=== PATIENT | female | born 1970 | race Caucasian/White ===

== ENCOUNTER 2020-04-24 08:03 | Outpatient (REF) | payer BC, SELFPAY ==
[2020-04-24 08:38] LABS: MANUAL DIFF FLAG NO
[2020-04-24 08:45] LABS: Basophils Percent Auto 0.3 % (0-2); Eosinophils Absolute Auto 0.1 X10*3/uL (0.0-0.4); Eosinophils Percent Auto 1.7 % (0-4); Hematocrit 41.4 % (37-47); Hemoglobin 13.1 g/dl (12.0-16.0); Imm Gran Abs Auto 0.02 X10*3/uL (0.00-0.03); Imm Gran Pct Auto 0.3 % (0.0-0.4); Lymphocytes Absolute Auto 2.9 X10*3/uL (1.2-4.9); Lymphocytes Percent Auto 41.2 % (20-40); Mean Corpuscular HGB Conc 31.6 g/dl (31.0-35.0); Mean Corpuscular Hemoglobin 25.7 pg (27.0-33.0); Mean Corpuscular Volume 81.3 fL (80-98); Mean Platelet Volume 11.1 fL (9.4-12.3); Monocytes Absolute Auto 0.4 X10*3/uL (0.1-1.2); Monocytes Percent Auto 6.2 % (2-11); Neutrophils Absolute Auto 3.6 X10*3/uL (2.0-8.3); Neutrophils Percent Auto 50.3 % (45-73); Platelet Count 315 X10*3/uL (160-400); Red Blood Count 5.09 X10*6/uL (4.20-5.50); Red Cell Distribution Width 14.4 % (11.0-16.0); White Blood Count 7.1 X10*3/uL (4.8-10.8)
[2020-04-24 09:18] LABS: Alanine Aminotransferase 27 U/L (0-31); Albumin Level 4.3 g/dL (3.5-5.0); Alkaline Phosphatase 75 U/L (39-117); Anion Gap 11 (12-20); Aspartate Amino Transferase 30 U/L (5-31); Bilirubin Total 0.6 mg/dL (0.0-1.0); Blood Urea Nitrogen 8 mg/dL (9-16); Calcium 9.2 mg/dL (8.4-10.2); Carbon Dioxide 31 mmol/L (22-29); Chloride 104 mmol/L (96-108); Cholesterol 198 mg/dL; Estimated Glomerular Filt Rate > 60; Glucose Fasting 92 mg/dL (60-99); HDL Cholesterol 49 mg/dL; LDL Cholesterol Calculated 118 mg/dl; Potassium 4.5 mmol/l (3.3-5.1); Sodium 141 mmol/L (135-145); Total Protein 7.3 g/dL (6.5-8.0); Triglycerides 159 mg/dL
[2020-04-24 11:23] LABS: TSH reflex Free T4 1.51 mIU/mL (0.32-4.0)
== END 2020-04-24 08:04 | disposition home or self-care (01) ==
LOC: HO.LAB 08:03
PROVIDERS: PCP Internal Medicine; Visit Provider Physician Assistant
DX: R00.2 Palpitations (principal); I10 Essential (primary) hypertension
CPT/HCPCS: 36415; 80053; 80061; 84443; 85025

== ENCOUNTER → 2020-06-07 13:55 | Outpatient (REF) | payer BC, SELFPAY ==
--- NOTE | 2020-06-07 13:56 | HM_ITS ---
TYPE OF PROCEDURE: Event monitor. REQUESTING PROVIDERS: Bud Rivera PA-C. REASON FOR TEST: Palpitation. TECHNIQUE: The patient was hooked up to a 30-day event monitor for symptoms of palpitation, continuously monitored during this time. FINDINGS: Baseline rhythm is normal sinus rhythm with heart rate varying from 83 beats per minute to 135 beats per minute. There were no arrhythmias noted. The patient reported multiple events of palpitations which correlated either with sinus rhythm or sinus tachycardia. CONCLUSION: Event monitor is remarkable for: 1. Baseline normal sinus rhythm. 2. No significant arrhythmias at baseline. 3. The patient reported palpitations correlated with sinus rhythm or sinus tachycardia. Abdullahi Humphrey MD NRS/MODL / [id number]
== END ==
LOC: HO.CARD 13:55
PROVIDERS: PCP Internal Medicine; Visit Provider Physician Assistant
DX: R00.2 Palpitations (principal)
CPT/HCPCS: 93225; 93270

== ENCOUNTER 2021-07-28 11:09 | Emergency (ER) | payer BC, SELFPAY ==
--- NOTE | ~2021-07-28 | XR_ITS ---
EXAMINATION: XR ANKLE, LEFT CLINICAL INFORMATION: Left ankle swelling COMPARISON: None TECHNIQUE: AP, lateral, and mortise views of the left ankle. FINDINGS: There is a minimally displaced oblique fracture of the distal fibula at the level of the syndesmosis with overlying soft tissue swelling. The ankle mortise is preserved. XR/XR ankle LT min 3V IMPRESSION: Oblique distal fibular fracture with soft tissue swelling.
[2021-07-28 11:26] VITALS: BP 140/81; PULSE 76; O2SAT 99; BMI 25.7
--- NOTE | 2021-07-28 12:30 | ED.LOWEXIN ---
HPI - Extremity Injury (Lower) General Chief Complaint: Extremity Injury, Lower <Jacklyn Urbina NP - Last Filed: 07/28/21 12:37> Stated Complaint: ankle inj <BRIAN Yeager Last Filed: 07/28/21 12:37> Time Seen by Provider: 07/28/21 11:12 <BRIAN Yeager Last Filed: 07/28/21 12:37> Source: patient <BRIAN Yeager Last Filed: 07/28/21 12:37> Mode of arrival: ambulatory <BRIAN Yeager Last Filed: 07/28/21 12:37> Limitations: no limitations <BRIAN Yeager Last Filed: 07/28/21 12:37> History of Present Illness HPI Narrative: 51-year-old female here with reports of left ankle pain after an inversion injury which occurred on Thursday. Pain with ambulation since the fall despite doing ice, elevation and taking Motrin for pain. No associated numbness, tingling, weakness, redness or warmth. Patient is using crutches home <BRIAN Yeager Last Filed: 07/28/21 12:37> Related Data Home Medications: Previous Rx's Medication Instructions Recorded lorazepam 0.5 mg tablet 0.5 mg PO DAILY PRN 30 Days #30 tab 01/31/21 acetaminophen 300 mg-codeine 15 mg 1 tab PO Q8H PRN #10 tab 07/28/21 tablet ibuprofen 800 mg tablet 800 mg PO Q8H PRN #20 tab 07/28/21 <BRIAN Yeager Last Filed: 07/28/21 12:37> Allergies/Adverse Reactions: Allergies Allergy/AdvReac Type Severity Reaction Status Date / Time No Known Allergies Allergy Verified 04/18/20 17:43 [No Known Allergies*] <BRIAN Yeager Last Filed: 07/28/21 12:37> Review of Systems Review of Systems: Yes all other systems are reviewed and are negative <BRIAN Yeager Last Filed: 07/28/21 12:37> Constitutional: Constitutional: Reports no additional constitutional complaints, Denies body ache(s), Denies chills, Denies fever(s), Denies headache(s) and Denies weakness <Jacklyn Urbina NP - Last Filed: 07/28/21 12:37> Eyes: Eyes: Reports no additional eye complaints and Denies change in vision <Jacklyn Urbina [employer] FA[employer]ORER - Last Filed: 07/28/21 12:37> ENT: Reports system reviewed and no additional complaints, except as documented, Denies dizziness, Denies headache(s), Denies nasal congestion, Denies nasal discharge and Denies neck pain <Jacklyn Urbina [employer]ER - Last Filed: 07/28/21 12:37> Cardiovascular: Cardiovascular: Reports no additional cardiovascular complaints, Denies chest pain, Denies leg edema and Denies dyspnea <Jacklyn Urbina [employer] FA[employer] LABORER - Last Filed: 07/28/21 12:37> Respiratory: Respiratory: Reports no additional respiratory complaints, Denies cough and Denies dyspnea <Jacklyn Urbina NP - Last Filed: 07/28/21 12:37> Gastrointestinal: Gastrointestinal: Reports no additional gastrointestinal complaints, Denies abdominal pain, Denies diarrhea, Denies nausea and Denies vomiting <Jacklyn Urbina [employer] FA[employer] LABORER - Last Filed: 07/28/21 12:37> Genitourinary: Genitourinary: Reports no additional female genitourinary complaints and Denies urinary incontinence <Jacklyn Urbina [employer] LABORER - Last Filed: 07/28/21 12:37> Musculoskeletal: Musculoskeletal: Reports no additional musculoskeletal complaints, Denies back pain, Reports arthralgias, Reports joint swelling, Denies neck pain, Denies numbness and Denies tingling <Jacklyn Urbina [employer] LAB[employer]ER - Last Filed: 07/28/21 12:37> Integumentary/Breasts: Skin/Breast: Reports system reviewed and no additional complaints, except as docu and Denies rash <Jacklyn Urbina [employer] LABORER - Last Filed: 07/28/21 12:37> Neurologic: Reports system reviewed and no additional complaints, except as documented, Denies Abnormal speech present, Denies dizziness, Denies headache(s), Denies numbness, Denies tingling and Denies weakness <Jacklyn Urbina NP - Last Filed: 07/28/21 12:37> [facility] Past Medical History Attestation statement: The following information was validated with the patient. <Jacklyn Urbina NP - Last Filed: 07/28/21 12:37> Source: old records reviewed and nursing notes reviewed <Jacklyn Urbina NP - Last Filed: 07/28/21 12:37> Medical History: Medical History Graves' disease Trichotillomania <Jacklyn Urbina NP - Last Filed: 07/28/21 12:37> Surgical History: Surgical History History of cholecystectomy History of D&C History of sinus surgery History of wisdom tooth extraction <Jacklyn Urbina NP - Last Filed: 07/28/21 12:37> Family History Family History: Family History Father Lung disease Mother Breast cancer Hypertension Maternal Grandmother Hypertension Diabetes <Jacklyn Urbina NP - Last Filed: 07/28/21 12:37> Social History Social History: Social History Advance Directives: No Advance Directives Information Provided: Yes Patient : No <Jacklyn Urbina NP - Last Filed: 07/28/21 12:37> Physical Exam Vital Signs: Vital Signs: Last Vital Signs Pulse 76 07/28/21 11:26 BP 140/81 H 07/28/21 11:26 Pulse Ox 99 07/28/21 11:26 BMI result Body Mass Index 25.7 <Jacklyn Urbina NP - Last Filed: 07/28/21 12:37> Vital Signs: Last Vital Signs Pulse 76 07/28/21 11:26 BP 140/81 H 07/28/21 11:26 Pulse Ox 99 07/28/21 11:26 BMI result Body Mass Index 25.7 <Corbin Nicole MD - Last Filed: 07/28/21 13:07> Const: General: cooperative, healthy appearing, comfortable and no acute distress <Jacklyn Urbina NP - Last Filed: 07/28/21 12:37> Orientation/consciousness: patient oriented x3 <Jacklyn Urbina NP - Last Filed: 07/28/21 12:37> Limitations: no limitations <Jacklyn Urbina NP - Last Filed: 07/28/21 12:37> HENMT: Head: Yes normal to inspection <Jacklyn Urbina NP - Last Filed: 07/28/21 12:37> Ears: hearing grossly normal bilaterally <Jacklyn Urbina NP - Last Filed: 07/28/21 12:37> General nose exam: Normal external nose present <Jacklyn Urbina NP - Last Filed: 07/28/21 12:37> Face and sinus: Yes normal facial exam <Jacklyn Urbina NP - Last Filed: 07/28/21 12:37> Mouth: Normal oral and palatal mucosa present <Jacklyn Urbina NP - Last Filed: 07/28/21 12:37> Throat: Yes posterior oropharynx normal <Jacklyn Urbina NP - Last Filed: 07/28/21 12:37> Eyes: General: appearance normal, both eyes and all related structures <Jacklyn Urbina NP - Last Filed: 07/28/21 12:37> Pupils: Equal, round and reactive pupils present <Jacklyn Urbina NP - Last Filed: 07/28/21 12:37> Neck: Neck: Yes normal visual inspection <Jacklyn Urbina NP - Last Filed: 07/28/21 12:37> Chest: Chest palpation & inspection: normal inspection of the chest <Jacklyn Urbina NP - Last Filed: 07/28/21 12:37> Resp: Effort & Inspection: normal respiratory effort <Jacklyn Urbina NP - Last Filed: 07/28/21 12:37> Auscultation: clear to auscultation bilaterally <Jacklyn Urbina NP - Last Filed: 07/28/21 12:37> Cardio: Rate: regular rate <Jacklyn Urbina NP - Last Filed: 07/28/21 12:37> Rhythm: regular rhythm <Jacklyn Urbina NP - Last Filed: 07/28/21 12:37> Peripheral pulses: Peripheral pulses 2+ throughout <Jacklyn Urbina [employer]ER - Last Filed: 07/28/21 12:37> GI: Inspection: Yes normal to inspection <Jacklyn Urbina [employer] FA[employer] LABORER - Last Filed: 07/28/21 12:37> Palpation (GI): Soft to palpation and nontender <Jacklyn Urbina [employer] FA[employer] LABORER - Last Filed: 07/28/21 12:37> Auscultation: normal bowel sounds <Jacklyn Urbina NP - Last Filed: 07/28/21 12:37> Back/Spine/Pelvis: Thoracic/Lumbar Spine: thoracic and lumbar spine normal to inspection <Jacklyn Urbina [employer]ER - Last Filed: 07/28/21 12:37> Skin: General skin exam: no rashes or lesions noted <Jacklyn Urbina NP - Last Filed: 07/28/21 12:37> Neuro: General: patient oriented x3, no focal motor deficits and normal sensation to monofilament <Jacklyn Urbina NP - Last Filed: 07/28/21 12:37> Cranial nerves: Yes Equal, round and reactive pupils present <Jacklyn Urbina NP - Last Filed: 07/28/21 12:37> Cognition (Neuro): normal cognition <Jacklyn Urbina [employer]ER - Last Filed: 07/28/21 12:37> Speech: No Abnormal speech present <Jacklyn Urbina NP - Last Filed: 07/28/21 12:37> Gait exam (Neuro): Normal gait present <Jacklyn Urbina NP - Last Filed: 07/28/21 12:37> Motor exam (neuro): 5/5 motor strength present throughout <Jacklyn Urbina NP - Last Filed: 07/28/21 12:37> Extrem: Other: Swelling, tenderness, ecchymosis the left lateral ankle. Full range of motion. Neurovascularly intact distally <Jacklyn Urbina NP - Last Filed: 07/28/21 12:37> General: Yes normal to inspection <BRIAN Yeager Last Filed: 07/28/21 12:37> Course Course Course Narrative: 51-year-old female here with left ankle pain after an inversion injury on Thursday with continued pain despite doing supportive care at home. Will check x-rays 1230-x-ray show IMPRESSION: Oblique distal fibular fracture with soft tissue swelling. Ankle mortise is preserved. Will place patient in a walking boot. She has crutches from home. Recommended continuing rice and following up with orthopedics outpatient. Reviewed worrisome signs and symptoms of when to return to the emergency department. Comfortable discharge home <BRIAN Yeager Last Filed: 07/28/21 12:37> MDM - Extremity Injury (Lower) Medical Records Attestation: I reviewed the patient's medical records. <BRIAN Yeager Last Filed: 07/28/21 12:37> Lab Data Attestation: I reviewed the patient's lab results. <BRIAN Yeager Last Filed: 07/28/21 12:37> Imaging Data ankle xray: Attestation: I personally reviewed and interpreted this imaging study as follows: <BRIAN Yeager Last Filed: 07/28/21 12:37> Radiologist's impression: IMPRESSION: Oblique distal fibular fracture with soft tissue swelling. <BRIAN Yeager Last Filed: 07/28/21 12:37> Procedures Procedure Narrative Procedure Narrative: walking boot <BRIAN Yeager Last Filed: 07/28/21 12:37> Discharge Plan Discharge Clinical Impression: Ankle fracture <BRIAN Yeager Last Filed: 07/28/21 12:37> Patient Disposition: Home, Self-Care <BRIAN Yeager Last Filed: 07/28/21 12:37> Instructions: Ankle Fracture (ED) <BRIAN Yeager Last Filed: 07/28/21 12:37> Additional Instructions: Rest, ice, elevation Use boot for ambulation with crutches and try to limit weight bearing <Jacklyn Urbina NP - Last Filed: 07/28/21 12:37> Prescriptions: New ibuprofen 800 mg tablet 800 mg PO Q8H PRN (Reason: pain) Qty: 20 RF: 0 acetaminophen-codeine 300-15 mg tablet 1 tab PO Q8H PRN (Reason: pain) Qty: 10 RF: 0 No Action lorazepam 0.5 mg tablet 0.5 mg PO DAILY PRN (Reason: anxiety) 30 Days Qty: 30 RF: 0 <Jacklyn Urbina NP - Last Filed: 07/28/21 12:37> Referrals: Molina Zapien MD [Physician] - 2 days <Jacklyn Urbina NP - Last Filed: 07/28/21 12:37> Stand Alone Forms: Work/School Release <Jacklyn Urbina NP - Last Filed: 07/28/21 12:37> Interventions: ED Discharge Assessment Last Done: 07/28/21 12:43 <Jacklyn Urbina NP - Last Filed: 07/28/21 12:37> Discharge Date/Time: 07/28/21 12:44 <Jacklyn Urbina NP - Last Filed: 07/28/21 12:37>
== END 2021-07-28 12:44 | disposition home or self-care (01) ==
PROVIDERS: Emergency Provider Emergency Medicine; PCP Internal Medicine
DX: S82.892A Other fracture of left lower leg, initial encounter for closed fracture (principal); W00.0XXA Fall on same level due to ice and snow, initial encounter; Y93.29 Activity, other involving ice and snow; Y92.9 Unspecified place or not applicable; Y99.9 Unspecified external cause status; Z79.899 Other long term (current) drug therapy
CPT/HCPCS: 73610; 99283

== ENCOUNTER → 2021-08-01 14:19 | Outpatient (BNVA) | payer BC, SELFPAY | PROVIDERS: PCP Internal Medicine; Visit Provider Physician Assistant ==

== ENCOUNTER 2021-08-08 08:39 | Outpatient (REF) | payer BC, SELFPAY ==
--- NOTE | ~2021-08-08 | XR_ITS ---
EXAMINATION: XR ANKLE, LEFT CLINICAL INFORMATION: Pain. COMPARISON: 07/28/2021 TECHNIQUE: AP, lateral, and mortise views of the left ankle. FINDINGS: No change in position of fractured distal fibula. The fracture line is still well visible. Mortise is grossly intact. No other finding. XR/XR ankle LT min 3V IMPRESSION: No change in position of fracture fragments distal fibula. Fracture lines are still well visible.
== END 2021-08-08 08:40 | disposition home or self-care (01) ==
LOC: HO.HOSX 08:39
PROVIDERS: Visit Provider Physician Assistant
DX: S82.832D Other fracture of upper and lower end of left fibula, subsequent encounter for closed fracture with routine healing (principal)
CPT/HCPCS: 73610

== ENCOUNTER 2021-08-13 09:17 | Outpatient (REF) | payer BC, SELFPAY ==
[2021-08-13 09:49] LABS: MANUAL DIFF FLAG NO
[2021-08-13 10:22] LABS: Basophils Percent Auto 0.2 % (0-2); Eosinophils Absolute Auto 0.1 X10*3/uL (0.0-0.4); Eosinophils Percent Auto 1.8 % (0-4); Hematocrit 40.5 % (37.0-47.0); Hemoglobin 13.3 g/dl (12.0-16.0); Imm Gran Abs Auto 0.01 X10*3/uL (0.00-0.03); Imm Gran Pct Auto 0.2 % (0.0-0.4); Lymphocytes Absolute Auto 1.8 X10*3/uL (1.2-4.9); Lymphocytes Percent Auto 35.6 % (20-40); Mean Corpuscular HGB Conc 32.8 g/dl (31.0-35.0); Mean Corpuscular Volume 82.3 fL (80.0-98.0); Mean Platelet Volume 11.3 fL (9.4-12.3); Monocytes Absolute Auto 0.3 X10*3/uL (0.1-1.2); Monocytes Percent Auto 6.6 % (2-11); Neutrophils Absolute Auto 2.9 x10*3/uL (2.0-8.3); Neutrophils Percent Auto 55.6 % (45-73); Platelet Count 354 X10*3/uL (160-400); Red Blood Count 4.92 X10*6/uL (4.20-5.50); Red Cell Distribution Width 13.6 % (11.0-16.0); White Blood Count 5.1 X10*3/uL (4.8-10.8)
[2021-08-13 10:51] LABS: Alanine Aminotransferase 12 U/L (0-31); Albumin Level 4.3 g/dL (3.5-5.0); Alkaline Phosphatase 82 U/L (39-117); Anion Gap 8 (12-20); Aspartate Amino Transferase 17 U/L (5-31); Bilirubin Total 0.7 mg/dL (0.0-1.0); Blood Urea Nitrogen 9 mg/dL (9-16); Calcium 9.4 mg/dL (8.4-10.2); Carbon Dioxide 30 mmol/L (22-29); Chloride 104 mmol/L (96-108); Cholesterol 202 mg/dL; Estimated Glomerular Filt Rate > 60; Glucose Fasting 87 mg/dL (60-99); HDL Cholesterol 49 mg/dL; LDL Cholesterol Calculated 134 mg/dl; Potassium 4.2 mmol/L (3.3-5.1); Sodium 138 mmol/L (135-145); Total Protein 7.2 g/dL (6.5-8.0); Triglycerides 96 mg/dL
[2021-08-13 11:14] LABS: TSH reflex Free T4 1.26 uIU/mL (0.32-4.0); Vitamin D 25-OH Total 26.4 ng/mL (>30)
[2021-08-13 12:02] LABS: Appearance Urine CLEAR; Color Urine YELLOW; Glucose Urine UA NEG (NEG); Leukocyte Esterase Urine NEG (NEG); Nitrite Urine NEG (NEG); Specific Gravity - Urine >= 1.030 (1.005-1.025); UACC Culture Trigger NO; Urine Blood TRACE (NEG); Urine Ketones NEG (NEG); Urine Protein NEG (NEG-TRACE)
[2021-08-13 12:43] LABS: Bacteria Urine TRACE /LPF; RBC Urine 0-2 /HPF (0); Squamous Epithelial Cell Urine 1+ /LPF; WBC Urine 0 /HPF (0-4)
== END 2021-08-13 09:18 | disposition home or self-care (01) ==
LOC: HO.LAB 09:17
PROVIDERS: PCP Internal Medicine; Visit Provider Internal Medicine
DX: Z00.00 Encounter for general adult medical examination without abnormal findings (principal); E55.9 Vitamin D deficiency, unspecified; Z86.39 Personal history of other endocrine, nutritional and metabolic disease
CPT/HCPCS: 36415; 80053; 80061; 81001; 81003; 82306; 84443; 85025

== ENCOUNTER 2021-08-29 06:06 | Outpatient (REF) | payer BC, SELFPAY ==
--- NOTE | ~2021-08-29 | XR_ITS ---
EXAMINATION: XR ANKLE, LEFT CLINICAL INFORMATION: Fracture COMPARISON: Previous x-ray most recent 08/08/2021 TECHNIQUE: AP, lateral, and mortise views of the left ankle. FINDINGS: There is an oblique fracture of the distal fibular shaft. Fracture line appears slightly more indistinct suggestive of evidence of healing. Alignment appears unchanged. No other fracture is seen. The ankle mortise is normal. Soft tissues are normal. XR/XR ankle LT min 3V IMPRESSION: Healing left distal fibular shaft fracture.
== END 2021-08-29 06:07 | disposition home or self-care (01) ==
LOC: HO.HOSX 06:06
PROVIDERS: Visit Provider Physician Assistant
DX: S82.832D Other fracture of upper and lower end of left fibula, subsequent encounter for closed fracture with routine healing (principal)
CPT/HCPCS: 73610

== ENCOUNTER 2021-09-23 07:49 | Outpatient (REF) | payer BC, SELFPAY ==
--- NOTE | ~2021-09-23 | XR_ITS ---
EXAMINATION: XR ANKLE, LEFT CLINICAL INFORMATION: Fracture COMPARISON: Previous x-rays, most recent 08/29/2021 TECHNIQUE: AP, lateral, and mortise views of the left ankle. FINDINGS: There is an oblique fracture of the distal fibular shaft. Slight interval increase in bony callus formation seen posteriorly on the lateral view. Otherwise, fracture does not appear appreciably changed. Ankle mortise is normal. Soft tissues are normal. XR/XR ankle LT min 3V IMPRESSION: Healing left distal fibular shaft fracture.
== END 2021-09-23 07:50 | disposition home or self-care (01) ==
LOC: HO.HOSX 07:49
PROVIDERS: Visit Provider Physician Assistant
DX: S82.832D Other fracture of upper and lower end of left fibula, subsequent encounter for closed fracture with routine healing (principal)
CPT/HCPCS: 73610

== ENCOUNTER → 2022-08-21 11:12 | Outpatient (BNVA) | payer BC, SELFPAY | PROVIDERS: PCP Internal Medicine; Visit Provider Nurse Practitioner Family | DX: Z13.89 Encounter for screening for other disorder (principal) ==

== ENCOUNTER 2022-09-19 09:06 | Outpatient (REF) | payer BC, SELFPAY ==
[2022-09-19 09:24] LABS: MANUAL DIFF FLAG NO
[2022-09-19 09:54] LABS: Basophils Percent Auto 0.4 % (0-2); Eosinophils Absolute Auto 0.1 X10*3/uL (0.0-0.4); Eosinophils Percent Auto 0.9 % (0-4); Hematocrit 39.1 % (37.0-47.0); Hemoglobin 13.3 g/dl (12.0-16.0); Imm Gran Abs Auto 0.02 X10*3/uL (0.00-0.03); Imm Gran Pct Auto 0.4 % (0.0-0.4); Lymphocytes Absolute Auto 2.1 X10*3/uL (1.2-4.9); Lymphocytes Percent Auto 39.1 % (20-40); Mean Corpuscular Hemoglobin 27.2 pg (27.0-33.0); Mean Platelet Volume 10.9 fL (9.4-12.3); Monocytes Absolute Auto 0.4 X10*3/uL (0.1-1.2); Monocytes Percent Auto 6.9 % (2-11); Neutrophils Absolute Auto 2.8 x10*3/uL (2.0-8.3); Neutrophils Percent Auto 52.3 % (45-73); Platelet Count 263 X10*3/uL (160-400); Red Blood Count 4.89 X10*6/uL (4.20-5.50); Red Cell Distribution Width 13.7 % (11.0-16.0); White Blood Count 5.3 X10*3/uL (4.8-10.8)
[2022-09-19 10:23] LABS: Alanine Aminotransferase 11 U/L (0-31); Albumin Level 4.2 g/dL (3.5-5.0); Alkaline Phosphatase 80 U/L (39-117); Anion Gap 12 (12-20); Aspartate Amino Transferase 17 U/L (5-31); Bilirubin Total 1.2 mg/dL (0.0-1.0); Blood Urea Nitrogen 9 mg/dL (9-16); Calcium 9.1 mg/dL (8.4-10.2); Carbon Dioxide 29 mmol/L (22-29); Chloride 104 mmol/L (96-108); Cholesterol 180 mg/dL; Estimated Glomerular Filt Rate > 60; Glucose Fasting 88 mg/dL (60-99); HDL Cholesterol 49 mg/dL; LDL Cholesterol Calculated 116 mg/dl; Potassium 3.8 mmol/L (3.3-5.1); Sodium 141 mmol/L (135-145); Total Protein 6.7 g/dL (6.5-8.0); Triglycerides 76 mg/dL
[2022-09-19 10:40] LABS: TSH reflex Free T4 1.08 uIU/mL (0.32-4.0); Vitamin D 25-OH Total 25.9 ng/mL (>30)
[2022-09-19 12:10] LABS: Appearance Urine Turbid; Color Urine Yellow; Glucose Urine UA Negative (Negative); Leukocyte Esterase Urine Negative (Negative); Nitrite Urine Negative (Negative); PH 5.5 (5.0-9.0); Specific Gravity - Urine 1.025 (1.005-1.025); UMIC TRIGGER UACC YES; Urine Blood Trace (Negative); Urine Ketones Trace mg/dL (Negative); Urine Protein Negative (Neg-Trace)
[2022-09-19 12:12] LABS: Bacteria Urine None Seen (None Seen); Hyaline Casts Urine 0-2 /LPF (0-2); RBC Urine 0-2 /HPF (0-2); WBC Urine 0-5 /HPF (0-5)
== END 2022-09-19 09:07 | disposition home or self-care (01) ==
LOC: HO.LAB 09:06
PROVIDERS: PCP Internal Medicine; Visit Provider Internal Medicine
DX: Z00.00 Encounter for general adult medical examination without abnormal findings (principal); E78.00 Pure hypercholesterolemia, unspecified; E55.9 Vitamin D deficiency, unspecified
CPT/HCPCS: 36415; 80053; 80061; 81001; 81003; 82306; 84443; 85025

== ENCOUNTER → 2023-01-09 08:26 | Day surgery (SDC) | payer BC, SELFPAY ==
[2023-01-07 14:43] VITALS: BMI 24.8
--- NOTE | 2023-01-08 10:01 | HO.ANESPROP2 ---
HPI - Anesthesia Eval Consult details Narrative: 52yo F for Colonoscopy PMFSH Active Problems Active Problems: All Active Problems (Updated 01/07/23 @ 14:38 by Taya Gutierrez RN) Generalized anxiety disorder (Acute) Graves' disease (Acute) Heart palpitations (Acute) Tachycardia (Acute) Fracture of distal end of left fibula (Acute) Annual physical exam (Acute) Family history of breast cancer (Acute) Recurrent sinus infections (Acute) Dense breast tissue on mammogram (Acute) Cervical cancer screening (Acute) Colon cancer screening (Acute) History of Graves' disease (Acute) Trichotillomania (Acute) Past Medical History Medical History (Updated 01/07/23 @ 14:38 by Taya Gutierrez RN) History of Graves' disease Palpitations Trichotillomania Family History Family History Father Lung disease Mother Breast cancer Hypertension Maternal Grandmother Hypertension Diabetes Surgical History Surgical History History of D&C (~2012) History of sinus surgery History of wisdom tooth extraction S/P LASIK surgery (~2006) Status post laparoscopic cholecystectomy (~11/30/15) Social History Social History Housing: House Alcohol intake: current Alcohol intake frequency: holidays/special occasions only Patient Tobacco Use Status: Never used Tobacco Second Hand Smoke Exposure: No service: No Current occupational status: employed Cognitive needs: No Hearing needs: No Vision needs: No Meds Allergies Allergy/AdvReac Type Severity Reaction Status Date / Time No Known Allergies Allergy Verified 08/21/22 11:52 [No Known Allergies*] Exam Exam Date and Time: January 08, 2023 1001 Height,Weight and Vital Signs: Height 5 ft 3 in Weight 63.503 kg Pertinent Lab Results Pertinent Lab Results: Laboratory Tests 09/19/22 09/19/22 09:21 09:21 WBC 5.3 Hgb 13.3 Hct 39.1 Plt Count 263 D Sodium 141 Potassium 3.8 Chloride 104 Carbon Dioxide 29 BUN 9 Creatinine 0.80 Assessment and Plan Assessment Anesthesia Assessment: Chart Reviewed
[2023-01-09 09:14] VITALS: BP 128/77; PULSE 75; RESP 18; TEMP 36.6; O2SAT 99
--- NOTE | 2023-01-09 09:21 | MHC.SHP ---
Pre-Procedural Eval Section A Date of Service: 01/09/23 The patient is an INPATIENT: No The History & Physical has been completed within 30 days and I have reviewed it.: No Section B Chief Complaint: Encounter for screening for malignant neoplasm Relevant Social History: None Present Medications: see Short Stay Collaborative assessment Medical History: Significant History (History of Graves' disease Trichotillomania) History of Previous Operations: Relevant previous surgery/procedure and date(s) (History of D&C (~2012) History of sinus surgery History of wisdom tooth extraction S/P LASIK surgery (~2006) Status post laparoscopic cholecystectomy (~11/30/15)) Allergies: Allergies Allergy/AdvReac Type Severity Reaction Status Date / Time No Known Allergies Allergy Verified 01/09/23 09:11 [No Known Allergies*] Review of Systems Sugical H&P ROS: Negative: Constitution, Cardiovascular, Respiratory and Gastrointestinal Exam Surgical H&P Exam: Normal: Heart, Normal: Lungs, Normal: Extremities and Normal: Abdomen Plan Diagnosis/Plan: Unchanged I have reviewed the history and physical and performed a pertinent physical examination on my patient. No changes have occurred unless specified. Time Spent With Patient Time: Total time managing care of this patient today ____ minutes.
--- NOTE | 2023-01-09 09:24 | W.PM.OPN ---
Operative Note Operative Note Date of Service: 01/09/23 Narrative: COLONOSCOPY TILL CECUM WITH [] Pre-op diagnosis: colon cancer screening, family history of colon polyps (sister at age 45 yrs) Post-op diagnosis:?[] Endoscopist:? Sue Fonseca MD Anesthesia:?MAC Consent: Indications for the procedure and potential complications of bleeding, perforation, reaction to medications and missed diagnosis were discussed with the patient and informed consent was obtained. Instrument: Olympus PCF H 190 L variable stiffness pediatric colonoscope Monitoring: Vital signs and clinical assessment, intermittent blood pressure monitoring, continuous EKG monitoring, Pulse oximetry and Carbon Dioxide monitoring were done throughout the procedure. Please see anesthesia flowsheet. Colon withdrawl time was [] minutes. Procedure: The patient was placed in the left lateral decubitis position and pre-procedure medications were administered. After a digital rectal examination of the ano-rectum, the video colonoscope was inserted into the rectum and advanced through the colon to the cecum. The colonoscope was slowly withdrawn in a retrograde panoramic fashion and the colon mucosa was carefully examined including a retroflexed view of the rectum. Findings and interventions are described below. Procedure Difficulty: [Without difficulty] [LLQ pressure applied to intubate the transverse colon/cecum] Findings: Terminal Ileum: Not evaluated Cecum: Normal Ascending Colon: Normal Transverse Colon: Normal Descending Colon: Normal Sigmoid Colon: Moderate diverticulosis Rectum: Normal Ano-rectum: Moderate internal hemorrhoids Colon preparation: [Excellent] [Good] [Fair] [poor] Impression and Post Procedure Diagnosis: Colonoscopy Findings: [] polyps removed Moderate diverticulosis seen in the []colon Moderate hemorrhoids on retroflexed exam. Plan: Await pathology results Patient has an appointment on []in the GI Clinic with [LEONID Hunter] [Stefany Briscoe NP] [[employer] [facility], SLIP COVER ESTIMATOR-OMAYRA] [Sue Fonseca M.D.]. Repeat Colonoscopy interval based on path results - in 3-5 years if polyps are adenomatous and 10 years if polyps are hyperplastic. Above findings were reviewed with the patient and [colon polyps] and [diverticulosis] handouts were given in the discharge area
--- NOTE | 2023-01-09 09:25 | HO.ANESPROP2 ---
[facility] Active Problems Active Problems: All Active Problems (Updated 01/07/23 @ 14:38 by Taya Gutierrez RN) Generalized anxiety disorder (Acute) Graves' disease (Acute) Heart palpitations (Acute) Tachycardia (Acute) Fracture of distal end of left fibula (Acute) Annual physical exam (Acute) Family history of breast cancer (Acute) Recurrent sinus infections (Acute) Dense breast tissue on mammogram (Acute) Cervical cancer screening (Acute) Colon cancer screening (Acute) History of Graves' disease (Acute) Trichotillomania (Acute) Past Medical History Medical History History of Graves' disease Palpitations Trichotillomania Family History Family History Father Lung disease Mother Breast cancer Hypertension Maternal Grandmother Hypertension Diabetes Family history of problems with anesthesia: No Surgical History Surgical History History of D&C (~2012) History of sinus surgery History of wisdom tooth extraction S/P LASIK surgery (~2006) Status post laparoscopic cholecystectomy (~11/30/15) History of Problems with Anesthesia: No Social History Social History Housing: House Alcohol intake: current Alcohol intake frequency: holidays/special occasions only Patient Tobacco Use Status: Never used Tobacco Second Hand Smoke Exposure: No Are you DNR?: No Advance Directives: No Advance Directives Information Provided: Yes Nutrition Risks: No Nutritional Risk service: No Current occupational status: employed Cognitive needs: No Hearing needs: No Vision needs: No Meds Allergies Allergy/AdvReac Type Severity Reaction Status Date / Time No Known Allergies Allergy Verified 01/09/23 09:11 [No Known Allergies*] Active Medications: Current Medications Lactated Ringer's (Lr) 1,000 mls @ 100 mls/hr IVCONT .Q10H JENNI Last Admin: 01/09/23 08:56 Dose: 100 mls/hr Ondansetron HCl (Ondansetron Hcl 4 Mg/2 Ml Vial) 4 mg IVPUSH ONCE PRN PRN Reason: Nausea and Vomiting Exam Exam Date and Time: January 09, 2023 0925 Height,Weight and Vital Signs: Height 5 ft 3 in Weight 63.503 kg Last Vital Signs Temp 97.9 F 01/09/23 09:14 Pulse 75 01/09/23 09:14 Resp 18 01/09/23 09:14 BP 128/77 01/09/23 09:14 Pulse Ox 99 01/09/23 09:14 O2 Del Method Room Air 01/09/23 09:14 Pertinent Lab Results Pertinent Lab Results: Laboratory Tests 01/09/23 08:40 Urine Test INCONCLUSIVE Airway Mallampati Class: II TM Dist: >3cm Loose/Missing/Broken Teeth: No Heart: rrr Lungs: clearn Assessment and Plan Final Anesthetic Review Family History of Problems with Anesthesia: No History of Problems with Anesthesia: No NPO: Yes ASA Class: II Final Preanesthetic Review: No Changes in Pt Med Stat, Meds/Allgs Chart Reviewed, Consent Obtained/Reviewed and Anes Risks/Benef Reviewed Patient Risk: Intermediate Procedure Risk: Low Anesthetic Plan Anesthetic Plan: MAC: Disposition: Standard PACU
--- NOTE | 2023-01-09 09:29 | PC.NURSE ---
per hematology Urine HCG was inconclusive x2, patient would need a blood HCG quant to be drawn to verify result. lab ordered and pending.
--- NOTE | 2023-01-09 10:36 | PC.NURSE ---
Patient has had a period in the last year. per protocol urine hcg completed and was inconclusive due to a faint pink line. HCG Quantitative drawn and result was 9. Dr. Jurado updated patient and educated her regarding anesthesia safety and f/u with ELECT[employer] DEPARTMENT CHAIR. IV removed and intact. Patient leaving to meet sister in parking lot. procedure canceled. Patient aware to f/u with dr. newton as well.
== END ==
PROVIDERS: PCP Internal Medicine; Visit Provider Internal Medicine Gastroenterology
DX: Z12.11 Encounter for screening for malignant neoplasm of colon (principal); Z53.09 Procedure and treatment not carried out because of other contraindication; Z32.01 Encounter for pregnancy test, result positive; E05.00 Thyrotoxicosis with diffuse goiter without thyrotoxic crisis or storm; F63.3 Trichotillomania; Z98.890 Other specified postprocedural states
CPT/HCPCS: 36415; 81025; 84702

== ENCOUNTER 2023-01-16 09:26 | Outpatient (REF) | payer BC, SELFPAY ==
[2023-01-16 11:35] LABS: HCG Quantitative 9 mIU/mL
== END 2023-01-16 09:27 | disposition home or self-care (01) ==
LOC: HO.LAB 09:26
PROVIDERS: PCP Internal Medicine; Visit Provider Advanced Practice Midwife
DX: Z34.90 Encounter for supervision of normal pregnancy, unspecified, unspecified trimester (principal)
CPT/HCPCS: 36415; 84702

== ENCOUNTER 2023-02-02 17:04 | Outpatient (AMB) | payer BC, SELFPAY ==
[2023-02-02 17:08] VITALS: BP 110/78; PULSE 73; O2SAT 99; BMI 25.7
--- NOTE | 2023-02-02 17:08 | A.OFFPC_ITS ---
Vital Signs 02/02/23 17:08 Height 5 ft 3 in Weight 145 lb 2 oz BMI 25.7 BP 110/78 Blood Pressure Location Lt brachial Position Sitting Pulse 73 Pulse Source Pulse Oximeter Pulse Oximetry (%) 99 Oxygen Delivery Method Room Air Intake Visit Reasons: 6 MONTHS Cdl Program Coordinator Required: No Accompanied by: Self / Same As Patient Allergies No Known Allergies [No Known Allergies*] Allergy (Verified 02/02/23 17:39) Medication List - Last Reconciled 02/02/23 by Mukesh Bell MD lorazepam 0.5 mg PO DAILY PRN 30 days valacyclovir 2,000 mg (2 x 1 gram) PO BID 1 day Tobacco use date assessed: 02/02/23 Dental Screening Dental Screen Date: 02/02/23 Did you have a dental visit in the last 12 months?: Yes Did you have a dental problem in the last 6 months where you did not have access to dental care?: No Was dental information given to patient?: Patient has dentist HPI 6 MONTHS HPI Details Patient comes in today for her follow up visit States that she feels okay Notes that her screening colonoscopy that was originally scheduled for last month got cancelled due to her HCG level coming back positive at 9 mIU/ml twice Notes that she went to see her plastics tooling engineer and they could not explain her positive HCG testing at this time but she was advised that at her level, it is not consistent with a tumor States that she had urine HCG done at home recently that came out negative 2 times and she will need an order to get her HCG level tested so she can have her colonoscopy rescheduled once her test comes back negative Adds that she has been dealing with chronic neck and back pain and has been seeing her chiropractor every month to get some treatment done to help her manage her pain States that her job requires her to be sitting at her desk all day long and this tends to aggravate her neck and back pains She recently requested from her employer for an ergonomic chair and desk (standing desk) to help alleviate/avoid aggravating her neck and back and was told that she will need to get a letter from her PCP regarding this first before they can help her get these items States that she feels okay otherwise and denies any headaches or dizziness Denies any chest pains, no SOB No nausea/vomiting, no abdominal pain No change in bowel habits noted Would also like to know how she did on her labs done back in September 2022 [facility] Medical History (Updated 02/02/23 @ 19:45 by Mukesh Bell MD) History of Graves' disease Palpitations Trichotillomania Vitamin D deficiency Surgical History History of D&C (~2012) History of sinus surgery History of wisdom tooth extraction S/P LASIK surgery (~2006) Status post laparoscopic cholecystectomy (~11/30/15) Family History Father Lung disease Mother Breast cancer Hypertension Maternal Grandmother Hypertension Diabetes Social History Housing: House Alcohol intake: current Alcohol intake frequency: holidays/special occasions only Patient Tobacco Use Status: Never used Tobacco Second Hand Smoke Exposure: No service: No Current occupational status: employed Cognitive needs: No Hearing needs: No Vision needs: No Questionnaire PHQ-9 Over the last 2 weeks, how often have you been bothered by any of the following problems? 1. Little interest or pleasure in doing things: not at all 2. Feeling down, depressed, or hopeless: not at all 3. Trouble falling or staying asleep, or sleeping too much: not at all 4. Feeling tired or having little energy: not at all 5. Poor appetite or overeating: not at all 6. Feeling bad about yourself - or that you are a failure or have let yourself or your family down: not at all 7. Trouble concentrating on things, such as reading the newspaper or watching television: not at all 8. Moving or speaking so slowly that other people could have noticed. Or the opposite - being so fidgety or restless that you have been moving around a lot more than usual: not at all 9. Thoughts that you would be better off or of hurting yourself in some way: not at all Total score: 0 Depression Screening Interpretation: Negative 51061 - PHQ-9 Billing: Yes Source: Developed by Drs. Yasmany Bragg, Cady Wu, Yunior Cummings and colleagues, with an educational jenniffer from [employer]. Thrive Questionnaire Date Thrive assessed: 02/02/23 I am a: Patient What is your living situation today?: I have a steady place to live Within the past 12 months, did the food you bought not last and you didn't have the money to get more?: Never true Within the past 12 months, did you worry whether your food would run out before you got money to buy more?: Never true Do you have trouble paying for medicines?: No Do you have trouble getting transportation to medical appointments?: No Do you have trouble paying your heating and electricity bill?: No Do you have trouble taking care of your child, family member or friend?: No Do you have trouble with day-to-day activities such as bathing, preparing meals, shopping, managing finances, etc.?: No Are you currently unemployed and looking for a job?: No Are you interested in more education?: No Please select the resources that you would like help with: None Currently or been in a relationship where the following occur: no concerns reported AUDIT C Alcohol Use Questionnaire (AUDIT-C) 1. How often do you have a drink containing alcohol?: Monthly or less (social ) 2. How many drinks containing alcohol do you have on a typical day when you are drinking?: 1 or 2 3. How often do you have six or more drinks on one occasion?: Never Total Score: 1 Score Reviewed/Action Taken: Yes CONTRERAS-7 AMB Questionnaire CONTRERAS-7 Date CONTRERAS - 7 assessed: 02/02/23 Feeling nervous, anxious, or on edge: 3 = Nearly every day Not being able to stop or control worryin = Nearly every day Worrying too much about different things: 3 = Nearly every day Trouble relaxin = Not at all Becoming easily annoyed or irritable: 0 = Not at all Feeling afraid as if something awful might happen: 0 = Not at all Source: Developed by Drs. Yasmany Bragg, Cady Wu, Yunior Cummings and colleagues, with an educational jenniffer from [employer]. Review of Systems Const Denies fatigue, Denies fever(s) and Denies headache(s) ENT Denies dysphagia, Denies dizziness, Denies otalgia, Denies headache(s), Reports neck pain (chronic), Denies odynophagia and Denies sore throat Card Denies chest pain, Denies palpitations and Denies dyspnea Resp Denies cough and Denies dyspnea GI Denies abdominal pain, Denies constipation, Denies dysphagia, Denies heartburn, Denies diarrhea, Denies nausea, Denies odynophagia and Denies vomiting Denies difficulty voiding, Denies nocturia and Denies dysuria Musc Reports back pain (chronic) and Reports neck pain (chronic) Neuro Denies dizziness and Denies headache(s) Endo Denies fatigue and Denies palpitations Physical exam (Primary Care) Vital Signs: Last Vital Signs Pulse 73 02/02/23 17:08 BP 110/78 02/02/23 17:08 Pulse Ox 99 02/02/23 17:08 Oxygen Delivery Method Room Air 02/02/23 17:08 BMI result Body Mass Index 25.7 Tobacco/Smoking Status: Tobacco use Status Tobacco use date assessed 02/02/23 02/02/23 17:12 Patient Tobacco Use Status Never used Tobacco 02/02/23 17:12 PHQ-9: PHQ-9 Score PHQ-9: Total score 0 02/02/23 23:32 Depression Screening Interpretation: Negative Thrive Assessment: Date of Thrive Assessment Date Thrive assessed 02/02/23 02/02/23 17:12 Currently or been in a relationship where the following occur: no concerns reported Const General: no acute distress and alert HENMT Ears: TM's normal bilaterally and EAC's normal Throat: Yes posterior oropharynx normal and Yes tonsils normal (no TP congestion) Neck Neck: Yes no lymphadenopathy and Yes supple Resp Auscultation: clear to auscultation bilaterally, no rales and no wheezes Cardio Rate: regular rate Rhythm: regular rhythm Heart sounds: no murmurs GI Palpation (GI): Soft to palpation, nontender and No hepatosplenomegaly present Back/Spine/Pelvis Cervical Spine: Cervical spine tenderness Thoracic/Lumbar Spine: lumbar spinal tenderness Skin General skin exam: no rashes or lesions noted Extrem General: Yes no clubbing, cyanosis or edema Results Reviewed Results Reviewed: Laboratory Tests 01/09/23 01/16/23 09:21 09:44 Beta HCG, Quant 9 9 Laboratory Tests 09/19/22 09/19/22 09/19/22 09:15 09:21 09:21 WBC 5.3 Hgb 13.3 Hct 39.1 Plt Count 263 D Sodium 141 Potassium 3.8 Creatinine 0.80 Estimated GFR > 60 Fasting Glucose 88 Calcium 9.1 AST 17 ALT 11 Triglycerides 76 Cholesterol 180 LDL Cholesterol, Calc 116 HDL Cholesterol 49 25-OH Vitamin D Total 25.9 TSH 1.08 Ur Specific [place] 1.025 Urine Protein Negative Urine Glucose (UA) Negative Urine Blood Trace H Assessment and Plan Assessment & Plan (1) Elevated serum hCG in female, not : Code(s): R79.89 - Other specified abnormal findings of blood chemistry Plan: Per request, will have patient recheck her HCG level for follow up; will also recheck some labs GM (2) Graves' disease: Comment: Dx in 2017; S/P treatment with Methimazole by Dr. Sabino Altamirano Code(s): E05.00 - Thyrotoxicosis with diffuse goiter without thyrotoxic crisis or storm Plan: TFTs were normal on her labs done back in September 2022 Follow up with endocrinology as scheduled (3) Vitamin D deficiency: Code(s): E55.9 - Vitamin D deficiency, unspecified Plan: Results of her labs done back in September 2022 reviewed and discussed with patient Advised that her Vitamin D level was low on her labs done back then Will start her on Vitamin D3 2000 units QD (4) Generalized anxiety disorder: Code(s): F41.1 - Generalized anxiety disorder Plan: Continue Lorazepam 0.5 mg QD PRN Plan To return in 6 months for her next annual physical examination Orders: Orders Comprehensive Met. Panel 02/02/23 R00.2 - Palpitations, R7. - Other specified abnormal findings of blood chemistry HCG Quantitative 02/02/23 R7.89 - Other specified abnormal findings of blood chemistry TSH reflex Free T4 02/02/23 R7.89 - Other specified abnormal findings of blood chemistry Complete Blood Count Auto Diff 02/02/23 R7.89 - Other specified abnormal findings of blood chemistry Medications: New cholecalciferol (vitamin D3) 50 mcg PO DAILY 90 caps 3RF 90 days E55.9 - Vitamin D deficiency, unspecified Coding Level of Care Code Est Pt Level 4 (14250) Diagnoses Elevated serum hCG in female, not Graves' disease E05.00 Vitamin D deficiency E55.9 Generalized anxiety disorder F41.1
== END 2023-02-02 17:54 | disposition home or self-care (01) ==
PROVIDERS: PCP Internal Medicine; Visit Provider Internal Medicine
DX: R79.89 Other specified abnormal findings of blood chemistry (principal); E05.00 Thyrotoxicosis with diffuse goiter without thyrotoxic crisis or storm; E55.9 Vitamin D deficiency, unspecified; F41.1 Generalized anxiety disorder
CPT/HCPCS: 99214

== ENCOUNTER 2023-02-04 09:23 | Outpatient (REF) | payer BC, SELFPAY ==
[2023-02-04 09:35] LABS: MANUAL DIFF FLAG NO
[2023-02-04 10:02] LABS: Basophils Percent Auto 0.3 % (0-2); Eosinophils Absolute Auto 0.1 X10*3/uL (0.0-0.4); Eosinophils Percent Auto 0.8 % (0-4); Hematocrit 40.9 % (37.0-47.0); Hemoglobin 13.4 g/dl (12.0-16.0); Imm Gran Abs Auto 0.01 X10*3/uL (0.00-0.03); Imm Gran Pct Auto 0.2 % (0.0-0.4); Lymphocytes Absolute Auto 2.3 X10*3/uL (1.2-4.9); Lymphocytes Percent Auto 38.7 % (20-40); Mean Corpuscular HGB Conc 32.8 g/dl (31.0-35.0); Mean Corpuscular Volume 82.5 fL (80.0-98.0); Mean Platelet Volume 11.2 fL (9.4-12.3); Monocytes Absolute Auto 0.4 X10*3/uL (0.1-1.2); Monocytes Percent Auto 6.1 % (2-11); Neutrophils Absolute Auto 3.2 x10*3/uL (2.0-8.3); Neutrophils Percent Auto 53.9 % (45-73); Platelet Count 283 X10*3/uL (160-400); Red Blood Count 4.96 X10*6/uL (4.20-5.50); Red Cell Distribution Width 13.1 % (11.0-16.0); White Blood Count 5.9 X10*3/uL (4.8-10.8)
[2023-02-04 11:15] LABS: Alanine Aminotransferase 11 U/L (0-31); Albumin Level 4.2 g/dL (3.5-5.0); Alkaline Phosphatase 82 U/L (39-117); Anion Gap 14 (12-20); Aspartate Amino Transferase 17 U/L (5-31); Bilirubin Total 0.7 mg/dL (0.0-1.0); Blood Urea Nitrogen 8 mg/dL (9-16); Calcium 9.5 mg/dL (8.4-10.2); Carbon Dioxide 27 mmol/L (22-29); Chloride 106 mmol/L (96-108); Estimated Glomerular Filt Rate > 60; Glucose Random 95 mg/dL (60-115); Potassium 4.1 mmol/L (3.3-5.1); Sodium 143 mmol/L (135-145); Total Protein 7.2 g/dL (6.5-8.0)
[2023-02-04 11:31] LABS: HCG Quantitative 8 mIU/mL; TSH reflex Free T4 1.42 uIU/mL (0.32-4.0)
== END 2023-02-04 09:24 | disposition home or self-care (01) ==
LOC: HO.LAB 09:23
PROVIDERS: PCP Internal Medicine; Visit Provider Internal Medicine
DX: R00.2 Palpitations (principal); R79.89 Other specified abnormal findings of blood chemistry; E05.00 Thyrotoxicosis with diffuse goiter without thyrotoxic crisis or storm
CPT/HCPCS: 36415; 80053; 84443; 84702; 85025

== ENCOUNTER 2023-04-09 11:26 | Outpatient (REF) | payer BC, SELFPAY | END 2023-04-09 11:27 | disposition home or self-care (01) | LOC: HO.LAB 11:26 | PROVIDERS: PCP Internal Medicine; Visit Provider Advanced Practice Midwife | DX: Z34.90 Encounter for supervision of normal pregnancy, unspecified, unspecified trimester (principal) | CPT/HCPCS: 36415; 84702 ==

== ENCOUNTER 2023-04-20 10:14 | Day surgery (SDC) | payer BC, SELFPAY ==
--- NOTE | 2023-04-17 10:51 | HO.ANESPROP2 ---
HPI - Anesthesia Eval Consult details Narrative: 53yo F for Colonoscopy PMFSH Active Problems Active Problems: All Active Problems (Updated 02/02/23 @ 19:45 by Mukesh Bell MD) Vitamin D deficiency (Acute) Elevated serum hCG in female, not (Acute) Generalized anxiety disorder (Acute) Graves' disease (Acute) Heart palpitations (Acute) Tachycardia (Acute) Fracture of distal end of left fibula (Acute) Annual physical exam (Acute) Family history of breast cancer (Acute) Recurrent sinus infections (Acute) Dense breast tissue on mammogram (Acute) Cervical cancer screening (Acute) Colon cancer screening (Acute) History of Graves' disease (Acute) Trichotillomania (Acute) Past Medical History Medical History (Updated 02/02/23 @ 19:45 by Mukesh Bell MD) Vitamin D deficiency Palpitations History of Graves' disease Trichotillomania Family History Family History Father Lung disease Mother Breast cancer Hypertension Maternal Grandmother Hypertension Diabetes Family history of problems with anesthesia: No Surgical History Surgical History Status post laparoscopic cholecystectomy (~11/30/15) S/P LASIK surgery (~2006) History of D&C (~2012) History of wisdom tooth extraction History of sinus surgery History of Problems with Anesthesia: No Social History Social History Housing: House Alcohol intake: current Alcohol intake frequency: holidays/special occasions only Patient Tobacco Use Status: Never used Tobacco Second Hand Smoke Exposure: No Use of substances other than those prescribed or required for medical reasons: No Are you DNR?: No Advance Directives: No Advance Directives Information Provided: Yes Recently lost weight without trying: No Nutrition Risks: No Nutritional Risk service: No Current occupational status: employed Cognitive needs: No Hearing needs: No Vision needs: No Meds Allergies Allergy/AdvReac Type Severity Reaction Status Date / Time No Known Allergies Allergy Verified 02/02/23 17:39 [No Known Allergies*] Exam Exam Date and Time: April 17, 2023 1051 Pertinent Lab Results Pertinent Lab Results: Laboratory Tests 02/04/23 09:33 WBC 5.9 Hgb 13.4 Hct 40.9 Plt Count 283 Sodium 143 Potassium 4.1 Chloride 106 Carbon Dioxide 27 BUN 8 L Creatinine 0.76 Assessment and Plan Assessment Anesthesia Assessment: Chart Reviewed Final Anesthetic Review Family History of Problems with Anesthesia: No History of Problems with Anesthesia: No
--- NOTE | 2023-04-20 10:20 | MHC.SHP ---
Pre-Procedural Eval Section A Date of Service: 04/20/23 Section B Chief Complaint: screening Relevant Family History (Specify if Yes): No Relevant Social History: None Present Medications: see Short Stay Collaborative assessment Medical History: Significant History (History of Graves' disease Trichotillomania) History of Previous Operations: Relevant previous surgery/procedure and date(s) (History of D&C (~2012) History of sinus surgery History of wisdom tooth extraction S/P LASIK surgery (~2006) Status post laparoscopic cholecystectomy (~11/30/15)) Allergies: Allergies Allergy/AdvReac Type Severity Reaction Status Date / Time No Known Allergies Allergy Verified 02/02/23 17:39 [No Known Allergies*] Review of Systems Sugical H&P ROS: Negative: Constitution, Cardiovascular, Respiratory and Gastrointestinal Exam Surgical H&P Exam: Normal: Heart, Normal: Lungs, Normal: Extremities and Normal: Abdomen Plan Diagnosis/Plan: Unchanged I have reviewed the history and physical and performed a pertinent physical examination on my patient. No changes have occurred unless specified. Time Spent With Patient Time: Total time managing care of this patient today ____ minutes.
--- NOTE | 2023-04-20 10:37 | P.CONAN_ITS ---
[facility] Active Problems Active Problems: All Active Problems (Updated 02/02/23 @ 19:45 by Mukesh Bell MD) Vitamin D deficiency (Acute) Elevated serum hCG in female, not (Acute) Generalized anxiety disorder (Acute) Graves' disease (Acute) Heart palpitations (Acute) Tachycardia (Acute) Fracture of distal end of left fibula (Acute) Annual physical exam (Acute) Family history of breast cancer (Acute) Recurrent sinus infections (Acute) Dense breast tissue on mammogram (Acute) Cervical cancer screening (Acute) Colon cancer screening (Acute) History of Graves' disease (Acute) Trichotillomania (Acute) Past Medical History Medical History (Updated 02/02/23 @ 19:45 by Mukesh Bell MD) Vitamin D deficiency Palpitations History of Graves' disease Trichotillomania Family History Family History Father Lung disease Mother Breast cancer Hypertension Maternal Grandmother Hypertension Diabetes Family history of problems with anesthesia: No Surgical History Surgical History Status post laparoscopic cholecystectomy (~11/30/15) S/P LASIK surgery (~2006) History of D&C (~2012) History of wisdom tooth extraction History of sinus surgery History of Problems with Anesthesia: No Social History Social History Housing: House Alcohol intake: current Alcohol intake frequency: holidays/special occasions only Patient Tobacco Use Status: Never used Tobacco Second Hand Smoke Exposure: No service: No Current occupational status: employed Cognitive needs: No Hearing needs: No Vision needs: No Meds Allergies Allergy/AdvReac Type Severity Reaction Status Date / Time No Known Allergies Allergy Verified 02/02/23 17:39 [No Known Allergies*] Exam Exam Date and Time: April 20, 2023 1037 Airway Mallampati Class: II TM Dist: >3cm Neck ROM: Full Heart: RRR Lungs: CTA Assessment and Plan Assessment Anesthesia Assessment: Anesthesia Plan Discussed Final Anesthetic Review Family History of Problems with Anesthesia: No History of Problems with Anesthesia: No ASA Class: II Final Preanesthetic Review: Meds/Allgs Chart Reviewed, Consent Obtained/Reviewed and Anes Risks/Benef Reviewed Patient Risk: Low Procedure Risk: Low Anesthetic Plan Anesthetic Plan: MAC: Disposition: Standard PACU
[2023-04-20 10:45] VITALS: BP 139/79; PULSE 88; RESP 18; TEMP 36.3; O2SAT 97; BMI 23.9
[2023-04-20] MEDS: Lactated Ringers 1,000 ML 100 ML IVCONT (10:58)
--- NOTE | 2023-04-20 11:10 | P.OP_ITS ---
Operative Note Operative Note Date of Service: 04/20/23 Narrative: COLONOSCOPY TILL CECUM WITH BIOPSIES Pre-op diagnosis: colon cancer screening Post-op diagnosis:? colon polyps, diverticulosis Endoscopist:? Sue Fonseca MD Anesthesia:?MAC Consent: Indications for the procedure and potential complications of bleeding, perforation, reaction to medications and missed diagnosis were discussed with the patient and informed consent was obtained. Instrument: Olympus PCF H 190 L variable stiffness pediatric colonoscope Monitoring: Vital signs and clinical assessment, intermittent blood pressure monitoring, continuous EKG monitoring, Pulse oximetry and Carbon Dioxide monitoring were done throughout the procedure. Please see anesthesia flowsheet. Colon withdrawl time was 13 minutes. Procedure: The patient was placed in the left lateral decubitis position and pre-procedure medications were administered. After a digital rectal examination of the ano-rectum, the video colonoscope was inserted into the rectum and advanced through the colon to the cecum. The colonoscope was slowly withdrawn in a retrograde panoramic fashion and the colon mucosa was carefully examined including a retroflexed view of the rectum. Findings and interventions are described below. Procedure Difficulty: LLQ pressure was applied to intubate the ascending colon Findings: Terminal Ileum: Not evaluated Cecum: Polypoidal mucosa around the appendicular orifice - biopsies obtained to rule out polyp Ascending Colon: Normal Transverse Colon: Normal Descending Colon: Normal Sigmoid Colon: Moderate diverticulosis Rectum: A 2-3 mm diminutive appearing polyp - removed with a cold biopsy Ano-rectum: Moderate internal hemorrhoids Colon preparation: Good Impression and Post Procedure Diagnosis: Colonoscopy Findings: One tiny polyp removed Polypoidal mucosa around the appendicular orifice - biopsies obtained to rule out polyp Moderate diverticulosis seen in the sigmoid colon Moderate hemorrhoids on retroflexed exam. Plan: Await pathology results Patient has an appointment on 05/07/23 in the GI Clinic with My Valdez FNP- [facility]. Repeat Colonoscopy interval based on path results - in 5 years if polyps are adenomatous and 10 years if polyps are hyperplastic. Above findings were reviewed with the patient and colon polyps and diverticulosis handouts were given in the discharge area
[2023-04-20 11:45] VITALS: BP 118/66; PULSE 82; RESP 16; TEMP 36.4
[2023-04-20 12:00] VITALS: BP 125/68; PULSE 80; RESP 16; TEMP 36.2; O2SAT 97
--- NOTE | 2023-04-20 12:09 | HO.POSTANES ---
Post Anesthesia Evaluation Post Anesthesia Evaluation Date of Service: 04/20/23 Vital Signs: Vital Signs Temp Pulse Resp BP Pulse Ox O2 Del Method O2 Flow Rate 04/20/23 12:00 97.2 F 80 16 125/68 97 Room Air 04/20/23 11:45 97.5 F 82 16 118/66 99 04/20/23 10:45 97.3 F 88 18 139/79 97 Room Air Anesthesia: Monitored Mental Status: Awake Pain Control: Satisfactory Nausea/Vomiting: None Hydration: Adequate Anesthesia-Related Issues: No Anes. Related Issues
== END 2023-04-20 12:36 | disposition home or self-care (01) ==
PROVIDERS: PCP Internal Medicine; Visit Provider Internal Medicine Gastroenterology
PROC: 0DJD8ZZ Inspection of Lower Intestinal Tract, Via Natural or Artificial Opening Endoscopic (ICD-10-PCS; CPT 45378; principal; 2023-04-20 12:00)
DX: Z12.11 Encounter for screening for malignant neoplasm of colon (principal); K63.5 Polyp of colon; K62.1 Rectal polyp; K57.30 Diverticulosis of large intestine without perforation or abscess without bleeding; K64.8 Other hemorrhoids; F63.3 Trichotillomania; Z90.49 Acquired absence of other specified parts of digestive tract; Z79.899 Other long term (current) drug therapy
CPT/HCPCS: 45380; 88305

== ENCOUNTER → 2023-04-20 10:14 | Outpatient (BNV) | payer BC, SELFPAY | PROVIDERS: PCP Internal Medicine; Visit Provider Internal Medicine Gastroenterology | DX: Z12.11 Encounter for screening for malignant neoplasm of colon (principal); K63.5 Polyp of colon; K57.30 Diverticulosis of large intestine without perforation or abscess without bleeding; K64.8 Other hemorrhoids | CPT/HCPCS: 45380 ==

== ENCOUNTER 2023-04-29 18:48 | Emergency (ER) | payer BC, SELFPAY ==
--- NOTE | ~2023-04-29 | CT_ITS ---
EXAMINATION: CT HEAD WITHOUT CONTRAST CLINICAL INFORMATION: Right facial numbness. COMPARISON: None available. TECHNIQUE: Contiguous axial imaging was performed from the skull base to vertex without intravenous administration of contrast. This CT examination was performed using dose optimization techniques as appropriate, variously including the following: *Automated exposure control *Adjustment of mA and/or kV according to patient size (this includes techniques or standardized protocols for targeted exams where dose is matched to indication/reason for exam; i.e. extremities or head) *Use of iterative reconstruction technique DLP: 626 mGy-cm FINDINGS: There is no acute intra-axial, extra-axial bleed, masses or midline shift. There is no acute infarction evolution. There is no edema. Perez to white matter differentiation is maintained normal. The lateral ventricles are symmetrical in size and configuration without enlargement. Bone windows reveal no calvarial abnormality. There is no scalp soft tissue abnormality. CT/CT head/brain wo IV con IMPRESSION: No acute intracranial process seen.
[2023-04-29 19:23] VITALS: BP 155/79; PULSE 97; RESP 18; TEMP 36.6; O2SAT 99; BMI 24.8
--- NOTE | 2023-04-29 19:32 | ECG_ITS ---
Test Reason : HYPERTENSION Blood Pressure : / mmHG Vent. Rate : 087 BPM Atrial Rate : 087 BPM P-R Int : 148 ms QRS Dur : 086 ms QT Int : 348 ms P-R-T Axes : 061 048 058 degrees QTc Int : 418 ms Normal sinus rhythm Normal ECG When compared with ECG of 27-FEB-2018 22:10, No significant change was found Heart rate has increased Referred By: Generic ED Physician Electronically Signed By:TYRONE COOPER MD
[2023-04-29 20:22] LABS: MANUAL DIFF FLAG NO
[2023-04-29 20:23] LABS: Basophils Percent Auto 0.4 % (0-2); Eosinophils Absolute Auto 0.1 X10*3/uL (0.0-0.4); Hematocrit 40.7 % (37.0-47.0); Hemoglobin 13.8 g/dl (12.0-16.0); Imm Gran Abs Auto 0.02 X10*3/uL (0.00-0.03); Imm Gran Pct Auto 0.2 % (0.0-0.4); Lymphocytes Absolute Auto 3.2 X10*3/uL (1.2-4.9); Lymphocytes Percent Auto 39.9 % (20-40); Mean Corpuscular HGB Conc 33.9 g/dl (31.0-35.0); Mean Corpuscular Volume 82.6 fL (80.0-98.0); Mean Platelet Volume 10.6 fL (9.4-12.3); Monocytes Absolute Auto 0.6 X10*3/uL (0.1-1.2); Monocytes Percent Auto 6.8 % (2-11); Neutrophils Absolute Auto 4.2 x10*3/uL (2.0-8.3); Neutrophils Percent Auto 51.7 % (45-73); Platelet Count 331 X10*3/uL (160-400); Red Blood Count 4.93 X10*6/uL (4.20-5.50); Red Cell Distribution Width 12.7 % (11.0-16.0)
[2023-04-29 20:37] LABS: Anion Gap 13 (12-20); Blood Urea Nitrogen 10 mg/dL (9-16); Calcium 9.9 mg/dL (8.4-10.2); Carbon Dioxide 28 mmol/L (22-29); Chloride 103 mmol/L (96-108); Creatinine Clr Calc Pharmacy 86.5; Estimated Glomerular Filt Rate > 60; Glucose Random 100 mg/dL (60-115); Sodium 140 mmol/L (135-145)
[2023-04-29 20:48] LABS: Troponin-I High Sensitivity < 2.7 ng/L (<3.5-17.0)
[2023-04-29 22:27] VITALS: BP 143/88; PULSE 84; RESP 18; O2SAT 99
--- NOTE | 2023-04-29 22:46 | ED_ITS ---
HPI - General Adult General Chief complaint: General Medical Stated complaint: high BP, R Cheek tingly, flushed, lightheaded Time Seen by Provider: 04/29/23 22:46 Source: patient Mode of arrival: ambulatory Limitations: no limitations History of Present Illness HPI narrative: Patient's history of anxiety Graves disease palpitation stable health otherwise notice numbness of the right side of the face and the lips since 11:00 checked her blood pressure was elevated to 170/106 patient does not have any history of hypertension repeat blood pressure in the ER was 144/93 denies any headache no history of migraines no nausea no vomiting no focal weakness no speech problem no family history of multiple sclerosis no history of migraine no history of lupus Related Data Previous Rx's Medication Instructions Recorded cholecalciferol (vitamin D3) 50 50 mcg PO DAILY 90 days #90 caps 02/03/23 mcg (2,000 unit) capsule lorazepam 0.5 mg tablet 0.5 mg PO DAILY PRN anxiety 30 02/05/23 days #30 tabs valacyclovir 1 gram tablet 2,000 mg (2 x 1 gram) PO BID 1 day 03/11/23 #4 tabs Allergies Allergy/AdvReac Type Severity Reaction Status Date / Time No Known Allergies Allergy Verified 02/02/23 17:39 [No Known Allergies*] Review of Systems 2 Review of Systems: Yes all other systems are reviewed and are negative PMFSH Past Medical History Medical History Vitamin D deficiency Palpitations History of Graves' disease Trichotillomania Surgical History Status post laparoscopic cholecystectomy (~11/30/15) S/P LASIK surgery (~2006) History of D&C (~2012) History of wisdom tooth extraction History of sinus surgery Family History Family History Father Lung disease Mother Breast cancer Hypertension Maternal Grandmother Hypertension Diabetes Social History Social History Housing: House Alcohol intake: current Alcohol intake frequency: holidays/special occasions only Patient Tobacco Use Status: Never used Tobacco Second Hand Smoke Exposure: No Advance Directives: No Advance Directives Information Provided: Yes service: No Current occupational status: employed Cognitive needs: No Hearing needs: No Vision needs: No Physical Exam ED Vital Signs: Vital Signs - 24 hr 04/29/23 19:23 04/29/23 22:27 04/29/23 23:52 Temperature 97.9 F Pulse Rate 97 84 80 Respiratory Rate 18 18 12 Blood Pressure 155/79 H 143/88 H 118/74 Pulse Oximetry 99 99 98 Oxygen Delivery Method Room Air Room Air Room Air BMI result Body Mass Index 24.8 Appearance: Alert. Oriented X3. No acute distress. Eyes: PERRLA, No Nystagmus ENT: Pharynx normal. Oral Mucosa moist Neck: Normal inspection. Neck supple. CVS: Normal heart rate and rhythm. Pulses normal. Respiratory: No respiratory distress. Equal air entry bilateral, no wheezing/rales/rhonchi Abdomen: Soft and nontender. Bowel sounds are present, no mass palpable, no CVA tenderness Skin: Skin warm and dry. Normal skin color. Normal skin turgor. Extremities: No lower extremity edema. No calf tenderness Neuro: Oriented X 3. No motor deficit. No sensory deficit.No cerebellar signs , cranial nerves II-XII intact NIH Stroke Scale Internal: Initial- Upon Arrival Level of Consciousness: Alert Level of Consciousness Questions: Answers both questions correctly Level of Consciousness Commands: Performs both tasks correctly Best Gaze: Normal Visual: No visual loss Facial Palsy: Normal Motor Arm (Right): No drift Motor Arm (Left): No drift Motor Leg (Right): No drift Motor Leg (Left): No drift Limb Ataxia: Absent Sensory: Normal Best Language: No aphasia Dysarthia: Normal Extinction and Inattention: No abnormality Score: 0 Medical Decision Making Medical Decision Making [facility] Narrative: Patient with subjective numbness on the right side of the face no focal deficit noticed no signs of neuralgia labs are stable , will do CT scan to rule out TIA CT scan head is negative for acute patient's blood pressure improved to 118/74 likely patient had transient had hypertension secondary to anxiety and stress Differential Diagnosis Differential Diagnoses: The differential diagnosis associated with the presentation includes TIA/paresthesias/CVA/anxiety Lab Data [facility] Lab Attestation statement: I reviewed the patient's lab results. 04/29/23 20:12 04/29/23 20:12 Labs: Lab Results 10/25/23 Range/Units 20:12 WBC 8.0 (4.8-10.8) X10*3/uL RBC 4.93 (4.20-5.50) X10*6/uL Hgb 13.8 (12.0-16.0) g/dl Hct 40.7 (37.0-47.0) % MCV 82.6 (80.0-98.0) fL MCH 28.0 (27.0-33.0) pg MCHC 33.9 (31.0-35.0) g/dl RDW 12.7 (11.0-16.0) % Plt Count 331 (160-400) X10*3/uL MPV 10.6 (9.4-12.3) fL Immature Gran % (Auto) 0.2 (0.0-0.4) % Neut % (Auto) 51.7 (45-73) % Lymph % (Auto) 39.9 (20-40) % Bay % (Auto) 6.8 (2-11) % Eos % (Auto) 1.0 (0-4) % Baso % (Auto) 0.4 (0-2) % Lymph # (Auto) 3.2 (1.2-4.9) X10*3/uL Bay # (Auto) 0.6 (0.1-1.2) X10*3/uL Eos # (Auto) 0.1 (0.0-0.4) X10*3/uL Baso # (Auto) 0.0 (0.0-0.2) X10*3/uL Abs Immat Gran (auto) 0.02 (0.00-0.03) X10*3/uL Absolute Neuts (auto) 4.2 (2.0-8.3) x10*3/uL Absolute Nucleated RBC 0.000 (0.0-0.012) X10*3/uL Nucleated RBC % (auto) 0.0 (0.0-0.2) /100WBC Sodium 140 (135-145) mmol/L Potassium 4.0 (3.3-5.1) mmol/L Chloride 103 (96-108) mmol/L Carbon Dioxide 28 (22-29) mmol/L Anion Gap 13 (12-20) BUN 10 (9-16) mg/dL Creatinine 0.69 (0.5-1.4) mg/dL Estim Creat Clear Calc 86.5 Estimated GFR > 60 Random Glucose 100 (60-115) mg/dL Calcium 9.9 (8.4-10.2) mg/dL Troponin I High Sens < 2.7 (<3.5-17.0) ng/L Radiology Impression Discussion of test interpretation with radiology: I have reviewed the radiologist's reading. Discharge Plan Discharge Clinical Impression: Paresthesia, Blood pressure elevated without history of HTN Patient Disposition: Home, Self-Care Instructions: Paresthesia (ED) Additional Instructions: Check blood pressure daily at least 2 times a day it should be less than 135/85 Follow up with PCP Prescriptions: No Action lorazepam 0.5 mg tablet 0.5 mg PO DAILY PRN (Reason: anxiety) 30 Days Qty: 30 0RF valacyclovir 1 gram tablet 2,000 mg PO BID 1 Days Qty: 4 0RF cholecalciferol (vitamin D3) 50 mcg (2,000 unit) capsule 50 mcg PO DAILY 90 Days Qty: 90 3RF
[2023-04-29 23:52] VITALS: BP 118/74; PULSE 80; RESP 12; O2SAT 98
== END 2023-04-30 01:26 | disposition home or self-care (01) ==
PROVIDERS: Emergency Provider Internal Medicine; PCP Internal Medicine
DX: R20.2 Paresthesia of skin (principal); R03.0 Elevated blood-pressure reading, without diagnosis of hypertension; R29.700 NIHSS score 0; G35 Multiple sclerosis; Z79.899 Other long term (current) drug therapy
CPT/HCPCS: 36415; 70450; 80048; 84484; 85025; 93005; 99284

== ENCOUNTER 2023-05-06 12:37 | Outpatient (AMB) | payer BC, SELFPAY ==
[2023-05-06 12:43] VITALS: BP 126/80; PULSE 78; O2SAT 97; BMI 26.1
--- NOTE | 2023-05-06 12:43 | MHC.PC.OV ---
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 Accompanied by: Self / Same As Patient Allergies No Known Allergies [No Known Allergies*] Allergy (Verified 05/07/23 08:52) Medication List - Last Reconciled 05/06/23 by Mukesh Bell MD cholecalciferol (vitamin D3) 50 mcg PO DAILY 90 days lorazepam 0.5 mg PO DAILY PRN 30 days valacyclovir 2,000 mg (2 x 1 gram) PO BID 1 day Tobacco use date assessed: 05/06/23 Dental Screening Dental Screen Date: 05/06/23 Did you have a dental visit in the last 12 months?: Yes Did you have a dental problem in the last 6 months where you did not have access to dental care?: No Was dental information given to patient?: Patient has dentist HPI 04/30 [facility] [place] BP, R Cheek tingly, lightheaded HPI Details Patient comes in for her [facility] follow up visit She went to the ER last week for evaluation when she started experiencing numbness on her lips and on the right side of her face BP was initially at 170/106 mm reportedly when first checked, and dropped down to 144/93 mm when it was rechecked later She had a CT of the head done at the ER, which came back negative Her blood pressure gradually improved and it was down to 118/78 mm when checked again after she had her CT done Her sensation of numbness on her lip and right side of the face gradually improved over time with reduction of her blood pressure and have not recurred again since She was determined to have elevated blood pressure that is most likely due to anxiety and stress She was discharged home without any additional prescription as she has some Lorazepam at home that she takes as needed and was instructed to follow up with her PCP GM States that she currently feels okay and is happy that her blood pressure seems to be good now Admts that she was likely stressed out when her blood pressure went up recently Takes Lorazepam as needed for anxiety but states that she has been taking her Lorazepam more often than usual lately and is now willing to try taking something to help manage her anxiety better She denies any headaches or dizziness Denies any chest pains, no SOB No nausea/vomiting, no abdominal pain No change in bowel habits noted [facility] Medical History (Updated 05/10/23 @ 09:18 by Mukesh Bell MD) Blood pressure elevated without history of HTN Vitamin D deficiency Palpitations History of Graves' disease Trichotillomania Surgical History Status post laparoscopic cholecystectomy (~11/30/15) S/P LASIK surgery (~2006) History of D&C (~2012) History of wisdom tooth extraction History of sinus surgery Family History Father Lung disease Mother Breast cancer Hypertension Maternal Grandmother Hypertension Diabetes Social History Housing: House Alcohol intake: current Alcohol intake frequency: holidays/special occasions only Patient Tobacco Use Status: Never used Tobacco Second Hand Smoke Exposure: No service: No Current occupational status: employed Cognitive needs: No Hearing needs: No Vision needs: No Questionnaire PHQ-9 Over the last 2 weeks, how often have you been bothered by any of the following problems? 1. Little interest or pleasure in doing things: not at all 2. Feeling down, depressed, or hopeless: not at all 3. Trouble falling or staying asleep, or sleeping too much: not at all 4. Feeling tired or having little energy: not at all 5. Poor appetite or overeating: not at all 6. Feeling bad about yourself - or that you are a failure or have let yourself or your family down: not at all 7. Trouble concentrating on things, such as reading the newspaper or watching television: not at all 8. Moving or speaking so slowly that other people could have noticed. Or the opposite - being so fidgety or restless that you have been moving around a lot more than usual: not at all 9. Thoughts that you would be better off or of hurting yourself in some way: not at all Total score: 0 Depression Screening Interpretation: Negative Depression Screening Done: Yes 61452 - PHQ-9 Billing: Yes Source: Developed by Drs. Yasmany Bragg, Cady Wu, Yunior Cummings and colleagues, with an educational jenniffer from [employer]. Thrive Questionnaire Date Thrive assessed: 05/06/23 I am a: Patient What is your living situation today?: I have a steady place to live Within the past 12 months, did the food you bought not last and you didn't have the money to get more?: Never true Within the past 12 months, did you worry whether your food would run out before you got money to buy more?: Never true Do you have trouble paying for medicines?: No Do you have trouble getting transportation to medical appointments?: No Do you have trouble paying your heating and electricity bill?: No Do you have trouble taking care of your child, family member or friend?: No Do you have trouble with day-to-day activities such as bathing, preparing meals, shopping, managing finances, etc.?: No Are you currently unemployed and looking for a job?: No Are you interested in more education?: No Please select the resources that you would like help with: None Currently or been in a relationship where the following occur: no concerns reported AUDIT C Alcohol Use Questionnaire (AUDIT-C) 1. How often do you have a drink containing alcohol?: Monthly or less (social ) 2. How many drinks containing alcohol do you have on a typical day when you are drinking?: 1 or 2 3. How often do you have six or more drinks on one occasion?: Never Total Score: 1 Score Reviewed/Action Taken: Yes CONTRERAS-7 AMB Questionnaire CONTRERAS-7 Date CONTRERAS - 7 assessed: 05/06/23 Feeling nervous, anxious, or on edge: 3 = Nearly every day Not being able to stop or control worryin = Nearly every day Worrying too much about different things: 3 = Nearly every day Trouble relaxin = Not at all Being so restless that it is hard to sit still: 0 = Not at all Becoming easily annoyed or irritable: 0 = Not at all Feeling afraid as if something awful might happen: 0 = Not at all Total CONTRERAS-7 score (0-4 normal; 5-9 mild; 10-14 moderate; 15-21 severe): 9 Source: Developed by Drs. Yasmany Bragg, Cady Wu, Yunior Cummings and colleagues, with an educational jenniffer from [employer]. Review of Systems Const Denies fatigue, Denies fever(s) and Denies headache(s) ENT Denies dysphagia, Denies dizziness, Denies otalgia, Denies headache(s), Reports neck pain (chronic), Denies odynophagia and Denies sore throat Card Denies chest pain, Denies palpitations and Denies dyspnea Resp Denies cough and Denies dyspnea GI Denies abdominal pain, Denies constipation, Denies dysphagia, Denies heartburn, Denies diarrhea, Denies nausea, Denies odynophagia and Denies vomiting Denies difficulty voiding, Denies nocturia, Denies dysuria and Denies urinary urgency Musc Reports back pain (chronic) and Reports neck pain (chronic) Skin/Breast Denies rash Neuro Denies dizziness and Denies headache(s) Psych Reports anxiety Endo Denies fatigue and Denies palpitations Physical exam (Primary Care) Vital Signs: Last Vital Signs Pulse 78 05/06/23 12:43 BP 126/80 05/06/23 12:43 Pulse Ox 97 05/06/23 12:43 Oxygen Delivery Method Room Air 05/06/23 12:43 BMI result Body Mass Index 26.1 Tobacco/Smoking Status: Tobacco use Status Tobacco use date assessed 05/06/23 05/06/23 12:50 Patient Tobacco Use Status Never used Tobacco 05/06/23 12:50 PHQ-9: PHQ-9 Score PHQ-9: Total score 0 05/09/23 23:29 Depression Screening Interpretation: Negative Thrive Assessment: Date of Thrive Assessment Date Thrive assessed 05/06/23 05/06/23 12:50 Currently or been in a relationship where the following occur: no concerns reported Const General: no acute distress and alert HENMT Ears: TM's normal bilaterally and EAC's normal Throat: Yes posterior oropharynx normal and Yes tonsils normal (no TP congestion) Neck Neck: Yes no lymphadenopathy and Yes supple Resp Auscultation: clear to auscultation bilaterally, no rales and no wheezes Cardio Rate: regular rate Rhythm: regular rhythm Heart sounds: no murmurs GI Palpation (GI): Soft to palpation and nontender Auscultation: normal bowel sounds Back/Spine/Pelvis Cervical Spine: Cervical spine tenderness Thoracic/Lumbar Spine: lumbar spinal tenderness Skin Rashes: no rashes Extrem General: Yes no clubbing, cyanosis or edema Assessment and Plan Assessment & Plan (1) Blood pressure elevated without history of HTN: Code(s): R03.0 - Elevated blood-pressure reading, without diagnosis of hypertension Plan: Patient's blood pressure when checked in the office today is normal She is advised that her elevated blood pressure recently was, as she has mentioned, most likely related to anxiety and stress, which she would now like to have managed better Reinforced low sodium diet She is instructed to continue monitoring her blood pressure regularly and advised that her systolic BP should ideally be around 120 mm or less and her diastolic BP should be anywhere around 85 mm or less to be considered normal (2) Graves' disease: Comment: Dx in 2017; S/P treatment with Methimazole by Dr. Sabino Altamirano Code(s): E05.00 - Thyrotoxicosis with diffuse goiter without thyrotoxic crisis or storm Plan: TFTs were normal on her labs done back in September 2022 Follow up with endocrinology as scheduled (3) Vitamin D deficiency: Code(s): E55.9 - Vitamin D deficiency, unspecified Plan: Continue Vitamin D3 2000 units QD (4) Generalized anxiety disorder: Code(s): F41.1 - Generalized anxiety disorder Plan: Continue Lorazepam 0.5 mg QD PRN Patient recalls taking Sertraline for some time in the past with no significant improvement of her symptoms Will start her on Citalopram 10 mg QD - she is reminded that she has to take this daily for the medication to help Plan To return as scheduled in July 2023 for her annual physical examination Medications: New citalopram 10 mg PO DAILY 30 days 30 tabs 2RF Coding Level of Care Code Est Pt Level 3 (66648) Diagnoses Blood pressure elevated without history of HTN R03.0 Graves' disease E05.00 Vitamin D deficiency E55.9 Generalized anxiety disorder F41.1
== END 2023-05-06 15:23 | disposition home or self-care (01) ==
PROVIDERS: PCP Internal Medicine; Visit Provider Internal Medicine
DX: R03.0 Elevated blood-pressure reading, without diagnosis of hypertension (principal); E05.00 Thyrotoxicosis with diffuse goiter without thyrotoxic crisis or storm; E55.9 Vitamin D deficiency, unspecified; F41.1 Generalized anxiety disorder
CPT/HCPCS: 99213

== ENCOUNTER 2023-05-07 08:47 | Outpatient (AMB) | payer BC, SELFPAY ==
--- NOTE | 2023-05-07 08:49 | MHC.OFFVIS ---
Intake Vital Signs 05/07/23 08:50 Height 5 ft 3 in Weight 147 lb 11.355 oz BMI 26.2 BP 149/62 H Blood Pressure Location Rt brachial Position Sitting Pulse 104 H Pulse Source Pulse Oximeter Pulse Oximetry (%) 98 Oxygen Delivery Method Room Air Intake Visit Reasons: s/p colon aman Intake Note: Pt presents to the office for a s/p colonoscopy. Pt states she is feeling well and denies any GI concerns at this time. Allergies No Known Allergies [No Known Allergies*] Allergy (Verified 05/07/23 08:52) HPI s/p colon aman HPI Details LAST VISIT Colon cancer screening Patient denies any GI, cardiac or respiratory symptoms.? Denies any issues with anesthesia in the past.? Denies any history of sleep apnea.? No history infectious diseases in the past or present.? Not on any anticoagulation therapy.? No family or personal history of colon cancer or polyps.? Patient denies melena, hematochezia, unintentional weight loss or ribbon like stools.? Discussed at length the pre-procedure,? prep, diet & medications as well as what to expect prior, during and after the procedure.?? Stressed the importance of good bowel prep. ?Recommended the use of Vaseline or Calmoseptine OTC & baby wipes with bowel movements to promote comfort.? ?Patient verbalizes understanding and agrees to plan of care.? She was given the opportunity to ask questions and all questions answered.? We will see her after the procedure.? COLONOSCOPY Findings: Terminal Ileum: Not evaluated Cecum: Polypoidal mucosa around the appendicular orifice - biopsies obtained to rule out polyp Ascending Colon: Normal Transverse Colon: Normal Descending Colon: Normal Sigmoid Colon: Moderate diverticulosis Rectum: A 2-3 mm diminutive appearing polyp - removed with a cold biopsy Ano-rectum: Moderate internal hemorrhoids Colon preparation: Good Impression and Post Procedure Diagnosis: Colonoscopy Findings: One tiny polyp removed Polypoidal mucosa around the appendicular orifice - biopsies obtained to rule out polyp Moderate diverticulosis seen in the sigmoid colon Moderate hemorrhoids on retroflexed exam. Plan: Repeat Colonoscopy interval based on path results - in 5 years if polyps are adenomatous and 10 years if polyps are hyperplastic. PATHOLOGY RESULTS Diagnosis A. Colon, cecum, biopsy: Colonic mucosa with a prominent lymphoid aggregate; negative for a hyperplastic or neoplastic process. B. Rectum, biopsy: Clinically polypoid colonic mucosa noted; negative for a hyperplastic or neoplastic process TODAY'S VISIT: Patient is here today for follow-up and to discuss colonoscopy results. Patient denies any ill effects from the prep, anesthesia or procedure itself. Patient reports that she has been feeling well. Denies any melena, hematochezia, unintentional weight loss or ribbon like stools. Colonoscopy results discussed with patient. Patient had negative for polyps for dysplasia or carcinoma. No adenoma found. Ten year colonoscopy recall, sooner if clinically necessary. [facility] Medical History (Updated 05/10/23 @ 09:18 by Mukesh Bell MD) Blood pressure elevated without history of HTN Vitamin D deficiency Palpitations History of Graves' disease Trichotillomania Surgical History Status post laparoscopic cholecystectomy (~11/30/15) S/P LASIK surgery (~2006) History of D&C (~2012) History of wisdom tooth extraction History of sinus surgery Family History Father Lung disease Mother Breast cancer Hypertension Maternal Grandmother Hypertension Diabetes Social History Housing: House Alcohol intake: current Alcohol intake frequency: holidays/special occasions only Patient Tobacco Use Status: Never used Tobacco Second Hand Smoke Exposure: No service: No Current occupational status: employed Cognitive needs: No Hearing needs: No Vision needs: No Review of Systems Const Denies weight gain and Denies weight loss ENT Reports no additional complaints, Denies dysphagia and Denies odynophagia Card Reports no additional complaints Resp Reports no additional complaints GI Denies abdominal pain, Denies belching, Denies melena, Denies bloating, Denies change in bowel habits, Denies dysphagia, Denies excessive flatus, Denies dyspepsia, Denies heartburn, Denies diarrhea, Denies loose stools, Denies nausea, Denies odynophagia and Denies vomiting Musc Reports no additional complaints Neuro Reports no additional complaints Psych Reports no additional complaints Endo Reports no additional complaints Physical Exam Vital Signs: Last Vital Signs Pulse 104 H 05/07/23 08:50 BP 149/62 H 05/07/23 08:50 Pulse Ox 98 05/07/23 08:50 Oxygen Delivery Method Room Air 05/07/23 08:50 BMI result Body Mass Index 26.2 Const General: healthy appearing, no acute distress and well developed Nutritional Appearance: well nourished Orientation/consciousness: patient oriented x3 HEENT Head: Yes normal to inspection, Yes normocephalic and Yes atraumatic Face and sinus: Yes normal facial exam Mouth: Normal oral and palatal mucosa present Throat: Yes posterior oropharynx normal, Yes tonsils normal and Yes uvula midline Eyes General: appearance normal, both eyes and all related structures Neck Neck: Yes normal visual inspection, Yes full ROM and Yes trachea midline Thyroid: Thyroid normal Resp Effort & Inspection: normal respiratory effort, able to speak in complete sentences, no tracheal deviation and symmetric chest movement Auscultation: clear to auscultation bilaterally Cardio Rate: regular rate Heart sounds: S1 normal heart sound present and S2 normal heart sound present GI Inspection: Yes normal to inspection and No distended Palpation (GI): Soft to palpation, not firm, nontender and No hepatosplenomegaly present Auscultation: normal bowel sounds General: Yes no CVA tenderness Back/Spine/Pelvis Back: no CVA tenderness Skin General skin exam: elasticity normal, turgor normal and dry skin Neuro General: patient oriented x3 Psych Appearance: grossly normal Mental Status: mental status grossly normal Affect: normal affect Assessment & Plan Assessment & Plan (1) Status post colonoscopy: Code(s): Z98.890 - Other specified postprocedural states Plan Patient had to benign polyps, no adenoma found. Patient will return for colorectal screening in 10 years, sooner on as needed basis. Patient denies any GI concerning symptoms. Will follow-up in our office on as needed basis. She is agreeable to this plan and verbalizes of instructions. She was given the opportunity to ask questions and all questions answered. Thank you for allowing me to participate in her care Coding Level of Care Code Est Pt Level 3 (82609) Diagnoses Status post colonoscopy Z98.890 Time Spent (min) 25 Comment 15 minutes spent with patient and additional 10 minutes spent reviewing her records
[2023-05-07 08:50] VITALS: BP 149/62; PULSE 104; O2SAT 98; BMI 26.2
== END 2023-05-07 09:22 | disposition home or self-care (01) ==
PROVIDERS: PCP Internal Medicine; Visit Provider Nurse Practitioner Family
DX: Z98.890 Other specified postprocedural states (principal)
CPT/HCPCS: 99213

== ENCOUNTER → 2023-05-07 08:47 | Outpatient (BNVA) | payer BC, SELFPAY | PROVIDERS: PCP Internal Medicine; Visit Provider Nurse Practitioner Family ==

== ENCOUNTER 2023-08-05 16:58 | Outpatient (AMB) | payer BC, SELFPAY ==
[2023-08-05 17:03] VITALS: BP 120/84; PULSE 61; O2SAT 93; BMI 27.0
--- NOTE | 2023-08-05 17:03 | A.OFFPC_ITS ---
Vital Signs 08/05/23 17:03 Height 5 ft 3 in Weight 152 lb 8 oz BMI 27.0 BP 120/84 Blood Pressure Location Lt brachial Position Sitting Pulse 61 Pulse Source Pulse Oximeter Pulse Oximetry (%) 93 Oxygen Delivery Method Room Air Intake Visit Reasons: PHYSICAL [employer] Consultant Required: No Accompanied by: Self / Same As Patient Allergies No Known Allergies [No Known Allergies*] Allergy (Verified 08/05/23 18:43) Medication List - Last Reconciled 08/05/23 by Mukesh Bell MD cholecalciferol (vitamin D3) 50 mcg PO DAILY 90 days citalopram 10 mg PO DAILY 30 days lorazepam 0.5 mg PO DAILY PRN 30 days valacyclovir 2,000 mg (2 x 1 gram) PO BID 1 day Tobacco use date assessed: 08/05/23 Dental Screening Dental Screen Date: 08/05/23 Did you have a dental visit in the last 12 months?: Yes Did you have a dental problem in the last 6 months where you did not have access to dental care?: No Was dental information given to patient?: Patient has dentist HPI PHYSICAL HPI Details Patient comes in today for her annual physical examination States that she currently feels okay and that her anxiety is better controlled o n her current Rx (Citalopram) She denies any headaches or dizziness Denies any chest pains, no SOB No nausea/vomiting, no abdominal pain No change in bowel habits noted Denies any acute urinary symptoms She had her screening colonoscopy done last April 20, 2023 - was recommended repeat colonoscopy in 10 years She had her mammogram last done in August 2022 and will be due for her repeat annual mammogram next month (done at [facility] in [place]) States that she is up-to-date with her annual gynecology exam and pap smear [facility] Medical History (Updated 08/05/23 @ 19:00 by Mukesh Bell MD) Overweight (BMI 25.0-29.9) Blood pressure elevated without history of HTN Vitamin D deficiency Palpitations History of Graves' disease Trichotillomania Surgical History (Updated 08/05/23 @ 19:03 by Mukesh Bell MD) Hx of colonoscopy (~04/20/23) Status post laparoscopic cholecystectomy (~11/30/15) S/P LASIK surgery (~2006) History of D&C (~2012) History of wisdom tooth extraction History of sinus surgery Family History Father Lung disease Mother Breast cancer Hypertension Maternal Grandmother Hypertension Diabetes Social History Housing: House Alcohol intake: current Alcohol intake frequency: holidays/special occasions only Patient Tobacco Use Status: Never used Tobacco e-Cigarette/Vaping Use: Never Used Second Hand Smoke Exposure: No service: No Current occupational status: employed Cognitive needs: No Hearing needs: No Vision needs: No Questionnaire PHQ-9 Over the last 2 weeks, how often have you been bothered by any of the following problems? 1. Little interest or pleasure in doing things: not at all 2. Feeling down, depressed, or hopeless: not at all 3. Trouble falling or staying asleep, or sleeping too much: not at all 4. Feeling tired or having little energy: not at all 5. Poor appetite or overeating: not at all 6. Feeling bad about yourself - or that you are a failure or have let yourself or your family down: not at all 7. Trouble concentrating on things, such as reading the newspaper or watching television: not at all 8. Moving or speaking so slowly that other people could have noticed. Or the opposite - being so fidgety or restless that you have been moving around a lot more than usual: not at all 9. Thoughts that you would be better off or of hurting yourself in some way: not at all Total score: 0 Depression Screening Interpretation: Negative Depression Screening Done: Yes 08302 - PHQ-9 Billing: Yes Source: Developed by Drs. Yasmany Bragg, Cady Wu, Yunior Cummings and colleagues, with an educational jenniffer from [employer]. Thrive Questionnaire Date Thrive assessed: 08/05/23 I am a: Patient What is your living situation today?: I have a steady place to live Within the past 12 months, did the food you bought not last and you didn't have the money to get more?: Never true Within the past 12 months, did you worry whether your food would run out before you got money to buy more?: Never true Do you have trouble paying for medicines?: No Do you have trouble getting transportation to medical appointments?: No Do you have trouble paying your heating and electricity bill?: No Do you have trouble taking care of your child, family member or friend?: No Do you have trouble with day-to-day activities such as bathing, preparing meals, shopping, managing finances, etc.?: No Are you currently unemployed and looking for a job?: No Are you interested in more education?: No Please select the resources that you would like help with: None Currently or been in a relationship where the following occur: no concerns reported THRIVE Score: 0 AUDIT C Alcohol Use Questionnaire (AUDIT-C) 1. How often do you have a drink containing alcohol?: Monthly or less (social ) 2. How many drinks containing alcohol do you have on a typical day when you are drinking?: 1 or 2 3. How often do you have six or more drinks on one occasion?: Never Total Score: 1 Score Reviewed/Action Taken: Yes CONTRERAS-7 AMB Questionnaire CONTRERAS-7 Date CONTRERAS - 7 assessed: 08/05/23 Feeling nervous, anxious, or on edge: 3 = Nearly every day Not being able to stop or control worryin = Nearly every day Worrying too much about different things: 3 = Nearly every day Trouble relaxin = Not at all Being so restless that it is hard to sit still: 0 = Not at all Becoming easily annoyed or irritable: 0 = Not at all Feeling afraid as if something awful might happen: 0 = Not at all Total CONTRERAS-7 score (0-4 normal; 5-9 mild; 10-14 moderate; 15-21 severe): 9 Source: Developed by Drs. Yasmany Bragg, Cady Wu, Yunior Cummings and colleagues, with an educational jenniffer from [employer]. Review of Systems Const Denies chills, Denies fatigue, Denies fever(s), Denies headache(s) and Denies malaise Eyes Denies blurry vision, Denies change in vision, Denies irritation and Denies itchy eyes ENT Denies dysphagia, Denies dizziness, Denies otalgia, Denies headache(s), Denies nasal congestion, Denies neck pain, Denies odynophagia, Denies sinus pain and Denies sore throat Card Denies chest pain, Denies rapid heart rate, Denies irregular heart rhythm, Denies palpitations and Denies dyspnea Resp Denies chest congestion, Denies cough, Denies dyspnea and Denies wheezing GI Denies abdominal pain, Denies bloating, Denies constipation, Denies dysphagia, Denies heartburn, Denies diarrhea, Denies nausea, Denies odynophagia and Denies vomiting Denies hematuria, Denies urinary frequency, Denies dysuria, Denies urinary incontinence and Denies urinary urgency Musc Denies back pain, Denies arthralgias, Denies joint swelling, Denies muscle weakness and Denies neck pain Skin/Breast Denies breast pain, Denies breast mass, Denies change in pigmentation, Denies lesions, Denies rash and Denies unusual bruising Neuro Denies dizziness, Denies headache(s) and Denies paresthesias Psych Reports anxiety (better controlled) and Denies depression Endo Denies fatigue and Denies palpitations Raul/Lymph Denies easy bruising Aller/Immun Denies itchy eyes and Denies wheezing Physical exam (Primary Care) Vital Signs: Last Vital Signs Pulse 61 08/05/23 17:03 BP 120/84 08/05/23 17:03 Pulse Ox 93 08/05/23 17:03 Oxygen Delivery Method Room Air 08/05/23 17:03 BMI result Body Mass Index 27.0 Tobacco/Smoking Status: Tobacco use Status Tobacco use date assessed 08/05/23 08/05/23 17:10 Patient Tobacco Use Status Never used Tobacco 08/05/23 17:10 e-Cigarette/Vaping Use Never Used 08/05/23 17:10 PHQ-9: PHQ-9 Score PHQ-9: Total score 0 08/05/23 17:32 Depression Screening Interpretation: Negative Thrive Assessment: Date of Thrive Assessment Date Thrive assessed 08/05/23 08/05/23 17:10 Currently or been in a relationship where the following occur: no concerns reported Const General: no acute distress, alert and awake Orientation/consciousness: patient oriented x3 HENMT Head: Yes normocephalic and Yes atraumatic Ears: external ears normal, TM's normal bilaterally and EAC's normal General nose exam: No nasal discharge present Face and sinus: Yes normal facial exam and Yes sinuses nontender Teeth and gingiva: dentition normal Throat: Yes posterior oropharynx normal and Yes tonsils normal (no TP congestion) Eyes Eyelids: Yes eyelids normal Conjunctivae: conjunctivae normal Pupils: Equal, round and reactive pupils present EOM: EOMs intact bilaterally Neck Neck: Yes no lymphadenopathy and Yes supple Thyroid: Thyroid normal Resp Auscultation: clear to auscultation bilaterally, no rales and no wheezes Cardio Rate: regular rate Rhythm: regular rhythm Heart sounds: no murmurs GI Palpation (GI): Soft to palpation, nontender and No hepatosplenomegaly present Auscultation: normal bowel sounds General: Yes no CVA tenderness Back/Spine/Pelvis Back: no CVA tenderness Thoracic/Lumbar Spine: thoracic and lumbar spine normal to inspection Skin Lesions: no lesions Rashes: no rashes Neuro General: patient oriented x3, moves all extremities, no focal motor deficits and CN's II-XI intact bilaterally Cranial nerves: Yes Equal, round and reactive pupils present Cognition (Neuro): normal cognition Gait exam (Neuro): Normal gait present Extrem General: Yes no clubbing, cyanosis or edema Assessment and Plan Assessment & Plan (1) Annual physical exam: Code(s): Z00.00 - Encounter for general adult medical examination without abnormal findings Plan: Check labs She is up-to-date with all of her cancer screenings (2) Blood pressure elevated without history of HTN: Code(s): R03.0 - Elevated blood-pressure reading, without diagnosis of hypertension Plan: Patient's blood pressure in the office today is normal and is much better than it was at her last visit Advised again that her elevated blood pressure previously was most likely related to increased anxiety and stress, which she states are now much better controlled on her Rx Reinforced low sodium diet She is reminded to continue monitoring her blood pressure regularly - systolic BP should again ideally be around 120 mm or less (3) Graves' disease: Comment: Dx in 2017; S/P treatment with Methimazole by Dr. Sabino Altamirano Code(s): E05.00 - Thyrotoxicosis with diffuse goiter without thyrotoxic crisis or storm Plan: TFTs were normal on her labs done back in September 2022; will recheck her TFTs for follow up Follow up with endocrinology as scheduled (4) Vitamin D deficiency: Code(s): E55.9 - Vitamin D deficiency, unspecified Plan: Continue Vitamin D3 2000 units QD (5) Generalized anxiety disorder: Code(s): F41.1 - Generalized anxiety disorder Plan: Continue Citalopram 10 mg QD and Lorazepam 0.5 mg QD PRN She has taken Sertraline for some time in the past with no significant improvement of her symptoms (6) Overweight (BMI 25.0-29.9): Code(s): E66.3 - Overweight Plan: Reinforced diet/exercise as tolerated/lose weight Plan Follow up in 6 months Orders: Orders Complete Blood Count Auto Diff Today D64.9 - Anemia, unspecified, Z00.00 - Encounter for general adult medical examination without abnormal findings Vitamin D 25-OH Total Today E55.9 - Vitamin D deficiency, unspecified, Z00.00 - Encounter for general adult medical examination without abnormal findings Comprehensive [place]. Panel Fast Today E78.00 - Pure hypercholesterolemia, unspecified, Z00.00 - Encounter for general adult medical examination without abnormal findings Lipid Panel Today E78.00 - Pure hypercholesterolemia, unspecified, Z00.00 - Encounter for general adult medical examination without abnormal findings TSH reflex Free T4 Today E78.00 - Pure hypercholesterolemia, unspecified, Z00.00 - Encounter for general adult medical examination without abnormal findings UA CC w/rflx Micro + Cult Today R30.0 - Dysuria, Z00.00 - Encounter for general adult medical examination without abnormal findings Coding Level of Care Code Est Pt Prev Care 40-64y(63105) Diagnoses Annual physical exam Z00.00 Blood pressure elevated without history of HTN R03.0 Graves' disease E05.00 Vitamin D deficiency E55.9 Generalized anxiety disorder F41.1 Overweight (BMI 25.0-29.9) E66.3
== END 2023-08-05 17:33 | disposition home or self-care (01) ==
PROVIDERS: PCP Internal Medicine; Visit Provider Internal Medicine
DX: Z00.00 Encounter for general adult medical examination without abnormal findings (principal); R03.0 Elevated blood-pressure reading, without diagnosis of hypertension; E05.00 Thyrotoxicosis with diffuse goiter without thyrotoxic crisis or storm; E55.9 Vitamin D deficiency, unspecified; F41.1 Generalized anxiety disorder; E66.3 Overweight
CPT/HCPCS: 99396

== ENCOUNTER 2023-08-07 07:53 | Outpatient (REF) | payer BC, SELFPAY ==
[2023-08-07 08:05] LABS: MANUAL DIFF FLAG NO
[2023-08-07 08:25] LABS: Basophils Percent Auto 0.5 % (0-2); Eosinophils Absolute Auto 0.1 X10*3/uL (0.0-0.4); Eosinophils Percent Auto 1.9 % (0-4); Hematocrit 40.8 % (37.0-47.0); Hemoglobin 13.5 g/dl (12.0-16.0); Imm Gran Abs Auto 0.02 X10*3/uL (0.00-0.03); Imm Gran Pct Auto 0.3 % (0.0-0.4); Lymphocytes Absolute Auto 2.3 X10*3/uL (1.2-4.9); Lymphocytes Percent Auto 36.7 % (20-40); Mean Corpuscular HGB Conc 33.1 g/dl (31.0-35.0); Mean Corpuscular Hemoglobin 27.1 pg (27.0-33.0); Mean Corpuscular Volume 81.9 fL (80.0-98.0); Mean Platelet Volume 10.8 fL (9.4-12.3); Monocytes Absolute Auto 0.4 X10*3/uL (0.1-1.2); Monocytes Percent Auto 6.4 % (2-11); Neutrophils Absolute Auto 3.4 x10*3/uL (2.0-8.3); Neutrophils Percent Auto 54.2 % (45-73); Platelet Count 306 X10*3/uL (160-400); Red Blood Count 4.98 X10*6/uL (4.20-5.50); Red Cell Distribution Width 13.1 % (11.0-16.0); White Blood Count 6.3 X10*3/uL (4.8-10.8)
[2023-08-07 09:02] LABS: Alanine Aminotransferase 15 U/L (0-31); Albumin Level 4.2 g/dL (3.5-5.0); Alkaline Phosphatase 105 U/L (39-117); Anion Gap 10 (12-20); Aspartate Amino Transferase 18 U/L (5-31); Bilirubin Total 0.5 mg/dL (0.0-1.0); Blood Urea Nitrogen 14 mg/dL (9-16); Calcium 9.2 mg/dL (8.4-10.2); Carbon Dioxide 30 mmol/L (22-29); Chloride 105 mmol/L (96-108); Cholesterol 186 mg/dL (<200); Estimated Glomerular Filt Rate > 60; Glucose Fasting 87 mg/dL (60-99); HDL Cholesterol 54 mg/dL (>40); LDL Cholesterol Calculated 116 mg/dL (<100); Potassium 4.1 mmol/L (3.3-5.1); Sodium 141 mmol/L (135-145); Total Protein 7.2 g/dL (6.5-8.0); Triglycerides 81 mg/dL (<150)
[2023-08-07 09:20] LABS: TSH reflex Free T4 1.29 uIU/mL (0.32-4.0); Vitamin D 25-OH Total 43.3 ng/mL (>30)
[2023-08-07 10:24] LABS: Appearance Urine Clear; Color Urine Yellow; Glucose Urine UA Negative (Negative); Leukocyte Esterase Urine Negative (Negative); Nitrite Urine Negative (Negative); Specific Gravity - Urine >= 1.030 (1.005-1.025); UMIC TRIGGER UACC YES; Urine Blood Small (1+) (Negative); Urine Ketones Negative (Negative); Urine Protein Negative (Neg-Trace)
[2023-08-07 11:22] LABS: Bacteria Urine Trace (None Seen); WBC Urine 0-5 /HPF (0-5)
[2023-08-07 11:39] LABS: RBC Urine 0-2 /HPF (0-2)
== END 2023-08-07 07:54 | disposition home or self-care (01) ==
LOC: HO.LAB 07:53
PROVIDERS: PCP Internal Medicine; Visit Provider Internal Medicine
DX: Z00.00 Encounter for general adult medical examination without abnormal findings (principal); D64.9 Anemia, unspecified; E55.9 Vitamin D deficiency, unspecified; E78.00 Pure hypercholesterolemia, unspecified
CPT/HCPCS: 36415; 80053; 80061; 81001; 81003; 82306; 84443; 85025

== ENCOUNTER 2024-08-05 07:47 | Outpatient (REF) | payer BC, SELFPAY ==
[2024-08-05 08:00] LABS: MANUAL DIFF FLAG NO
[2024-08-05 08:16] LABS: Basophils Percent Auto 0.3 % (0-2); Eosinophils Absolute Auto 0.1 X10*3/uL (0.0-0.4); Eosinophils Percent Auto 1.2 % (0-4); Hematocrit 40.1 % (37.0-47.0); Hemoglobin 13.4 g/dl (12.0-16.0); Imm Gran Abs Auto 0.01 X10*3/uL (0.00-0.03); Imm Gran Pct Auto 0.2 % (0.0-0.4); Lymphocytes Absolute Auto 2.6 X10*3/uL (1.2-4.9); Lymphocytes Percent Auto 39.6 % (20-40); Mean Corpuscular HGB Conc 33.4 g/dl (31.0-35.0); Mean Corpuscular Hemoglobin 27.3 pg (27.0-33.0); Mean Corpuscular Volume 81.7 fL (80.0-98.0); Mean Platelet Volume 10.8 fL (9.4-12.3); Monocytes Absolute Auto 0.4 X10*3/uL (0.1-1.2); Monocytes Percent Auto 6.7 % (2-11); Neutrophils Absolute Auto 3.4 x10*3/uL (2.0-8.3); Platelet Count 280 X10*3/uL (160-400); Red Blood Count 4.91 X10*6/uL (4.20-5.50); Red Cell Distribution Width 13.2 % (11.0-16.0); White Blood Count 6.5 X10*3/uL (4.8-10.8)
[2024-08-05 08:26] LABS: Appearance Urine Clear; Color Urine Yellow; Glucose Urine UA Negative (Negative); Leukocyte Esterase Urine Negative (Negative); Nitrite Urine Negative (Negative); UMIC TRIGGER UACC YES; Urine Blood Trace (Negative); Urine Ketones Negative (Negative); Urine Protein Negative (Neg-Trace)
[2024-08-05 08:29] LABS: Bacteria Urine None Seen (None Seen); Hyaline Casts Urine 0-2 /LPF (0-2); RBC Urine 0-2 /HPF (0-2); WBC Urine 0-5 /HPF (0-5)
[2024-08-05 08:56] LABS: Albumin Level 4.3 g/dL (3.5-5.0); Alkaline Phosphatase 132 U/L (39-117); Anion Gap 13 (12-20); Aspartate Amino Transferase 35 U/L (5-31); Bilirubin Total 0.8 mg/dL (0.0-1.0); Blood Urea Nitrogen 10 mg/dL (9-16); Calcium 9.9 mg/dL (8.4-10.2); Carbon Dioxide 28 mmol/L (22-29); Chloride 105 mmol/L (96-108); Cholesterol 206 mg/dL (<200); Estimated Glomerular Filt Rate > 60; Glucose Fasting 88 mg/dL (60-99); HDL Cholesterol 53 mg/dL (>40); LDL Cholesterol Calculated 127 mg/dL (<100); Sodium 142 mmol/L (135-145); Total Protein 7.5 g/dL (6.5-8.0); Triglycerides 130 mg/dL (<150)
[2024-08-05 09:13] LABS: Alanine Aminotransferase 43 U/L (0-31); TSH reflex Free T4 2.26 uIU/mL (0.32-4.0); Vitamin D 25-OH Total 39.8 ng/mL (>30)
== END 2024-08-05 07:48 | disposition home or self-care (01) ==
LOC: HO.LAB 07:47
PROVIDERS: PCP Internal Medicine; Visit Provider Internal Medicine
DX: Z00.00 Encounter for general adult medical examination without abnormal findings (principal); E78.00 Pure hypercholesterolemia, unspecified; E55.9 Vitamin D deficiency, unspecified; D64.9 Anemia, unspecified
CPT/HCPCS: 36415; 80053; 80061; 81001; 82306; 84443; 85025

== ENCOUNTER 2024-08-15 17:18 | Outpatient (AMB) | payer BC, SELFPAY ==
[2024-08-15 17:21] VITALS: BP 120/82; PULSE 81; O2SAT 97; BMI 27.8
--- NOTE | 2024-08-15 17:21 | MHC.PC.OV ---
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 Accompanied by: Self / Same As Patient Allergies No Known Allergies [No Known Allergies*] Allergy (Verified 08/15/24 17:32) Medication List - Last Reconciled 08/15/24 by Mukesh Bell MD cholecalciferol (vitamin D3) 50 mcg PO DAILY 90 days lorazepam 0.5 mg PO DAILY PRN 30 days valacyclovir 2,000 mg PO BID PRN Tobacco use date assessed: 08/15/24 Dental Screening Dental Screen Date: 08/15/24 Did you have a dental visit in the last 12 months?: Yes Did you have a dental problem in the last 6 months where you did not have access to dental care?: No Was dental information given to patient?: Patient has dentist HPI PHYSICAL HPI Details Patient comes in today for her annual physical examination States that she feels okay She denies any headaches or dizziness Denies any chest pains, no shortness of breath No nausea/vomiting, no abdominal pain No change in bowel habits noted She denies any acute urinary symptoms Adds that she has been experiencing recurrent pain in her hips lately, especially in her left hip States that her left hip often bothers her when she is lying down on her left side at night She does not recall any recent injury or trauma to her hips She will need her Lorazepam Rx refilled today She had her follow-up labs done a couple of weeks ago to discuss her results She is up-to-date with her cancer screenings - her mammogram is scheduled for next month (September 2024) Her next colonoscopy is due in 2032 and she will be calling up her nitroglycerin neutralizer in [place] to schedule her next appointment this year [facility] Medical History (Updated 08/16/24 @ 03:18 by Mukesh Bell MD) Elevated blood pressure reading without diagnosis of hypertension Elevated LFTs Mixed hyperlipidemia Anxiety Overweight (BMI 25.0-29.9) Vitamin D deficiency Palpitations History of Graves' disease Trichotillomania Surgical History Hx of colonoscopy (~04/20/23) Status post laparoscopic cholecystectomy (~11/30/15) S/P LASIK surgery (~2006) History of D&C (~2012) History of wisdom tooth extraction History of sinus surgery Family History Father Lung disease Mother Breast cancer Hypertension Maternal Grandmother Hypertension Diabetes Social History (Updated 08/15/24 @ 17:53 by Mukesh Bell MD) Housing: House Alcohol intake: current Alcohol intake frequency: holidays/special occasions only Patient Tobacco Use Status: Never used Tobacco e-Cigarette/Vaping Use: Never Used Second Hand Smoke Exposure: No service: No Current occupational status: employed Current occupation: Nurse Cognitive needs: No Hearing needs: No Vision needs: No Questionnaire PHQ-9 Over the last 2 weeks, how often have you been bothered by any of the following problems? 1. Little interest or pleasure in doing things: not at all 2. Feeling down, depressed, or hopeless: several days 3. Trouble falling or staying asleep, or sleeping too much: several days 4. Feeling tired or having little energy: several days 5. Poor appetite or overeating: not at all 6. Feeling bad about yourself - or that you are a failure or have let yourself or your family down: not at all 7. Trouble concentrating on things, such as reading the newspaper or watching television: not at all 8. Moving or speaking so slowly that other people could have noticed. Or the opposite - being so fidgety or restless that you have been moving around a lot more than usual: not at all 9. Thoughts that you would be better off or of hurting yourself in some way: not at all Total score: 3 Depression Screening Interpretation: Negative Depression Screening Done: Yes [id number] - PHQ-9 Billing: Yes Source: Developed by Drs. Yasmany Bragg, Cady Wu, Yunior Cummings and colleagues, with an educational jenniffer from [employer] Thrive Questionnaire Date Thrive assessed: 08/15/24 I am a: Patient What is your living situation today?: I have a steady place to live Within the past 12 months, did the food you bought not last and you didn't have the money to get more?: Never true Within the past 12 months, did you worry whether your food would run out before you got money to buy more?: Never true Do you have trouble paying for medicines?: No Do you have trouble getting transportation to medical appointments?: No Do you have trouble paying your heating and electricity bill?: No Do you have trouble taking care of your child, family member or friend?: No Do you have trouble with day-to-day activities such as bathing, preparing meals, shopping, managing finances, etc.?: No Are you currently unemployed and looking for a job?: No Are you interested in more education?: No Please select the resources that you would like help with: None Currently or been in a relationship where the following occur: No concerns reported THRIVE Score: 0 AUDIT C Alcohol Use Questionnaire (AUDIT-C) 1. How often do you have a drink containing alcohol?: Monthly or less 2. How many drinks containing alcohol do you have on a typical day when you are drinking?: 1 or 2 3. How often do you have six or more drinks on one occasion?: Never Total Score: 1 Score Reviewed/Action Taken: Yes CONTRERAS-7 AMB Questionnaire CONTRERAS-7 Date CONTRERAS - 7 assessed: 08/15/24 Feeling nervous, anxious, or on edge: 1 = Several days Not being able to stop or control worryin = Several days Worrying too much about different things: 1 = Several days Trouble relaxin = Several days Being so restless that it is hard to sit still: 0 = Not at all Becoming easily annoyed or irritable: 1 = Several days Feeling afraid as if something awful might happen: 1 = Several days Total CONTRERAS-7 score (0-4 normal; 5-9 mild; 10-14 moderate; 15-21 severe): 6 Source: Developed by Drs. Yasmany Bragg, Cady Wu, Yunior Cummings and colleagues, with an educational jenniffer from [employer] Review of Systems Const Denies chills, Denies fatigue, Denies fever(s), Denies headache(s) and Denies malaise Eyes Denies blurry vision, Denies change in vision, Denies irritation and Denies itchy eyes ENT Denies dysphagia, Denies dizziness, Denies otalgia, Denies headache(s), Denies nasal congestion, Denies neck pain, Denies odynophagia, Denies sinus pain and Denies sore throat Card Denies chest pain, Denies rapid heart rate, Denies irregular heart rhythm, Denies palpitations and Denies dyspnea Resp Denies chest congestion, Denies cough, Denies dyspnea and Denies wheezing GI Denies abdominal pain, Denies bloating, Denies constipation, Denies dysphagia, Denies heartburn, Denies diarrhea, Denies nausea, Denies odynophagia and Denies vomiting Denies hematuria, Denies urinary frequency, Denies dysuria, Denies urinary incontinence and Denies urinary urgency Musc Denies back pain, Reports arthralgias (in both hips - see HPI), Denies joint swelling, Denies muscle weakness and Denies neck pain Skin/Breast Denies breast pain, Denies breast mass, Denies change in pigmentation, Denies lesions, Denies rash and Denies unusual bruising Neuro Denies dizziness, Denies headache(s) and Denies paresthesias Psych Reports anxiety and Denies depression Endo Denies fatigue and Denies palpitations Raul/Lymph Denies easy bruising Aller/Immun Denies itchy eyes and Denies wheezing Physical exam (Primary Care) Vital Signs: Last Vital Signs Pulse 81 08/15/24 17:21 BP 120/82 08/15/24 17:21 Pulse Ox 97 08/15/24 17:21 Oxygen Delivery Method Room Air 08/15/24 17:21 BMI result Body Mass Index 27.8 Tobacco/Smoking Status: Tobacco use Status Tobacco use date assessed 08/15/24 08/15/24 17:26 Patient Tobacco Use Status Never used Tobacco 08/15/24 17:53 e-Cigarette/Vaping Use Never Used 08/15/24 17:53 PHQ-9: PHQ-9 Score PHQ-9: Total score 3 08/15/24 21:12 Depression Screening Interpretation: Negative Thrive Assessment: Date of Thrive Assessment Date Thrive assessed 08/15/24 08/15/24 17:26 Currently or been in a relationship where the following occur: No concerns reported Const General: no acute distress, alert and awake Orientation/consciousness: patient oriented x3 HENMT Head: Yes normocephalic and Yes atraumatic Ears: external ears normal, TM's normal bilaterally and EAC's normal General nose exam: No nasal discharge present Face and sinus: Yes normal facial exam and Yes sinuses nontender Teeth and gingiva: dentition normal Throat: Yes posterior oropharynx normal and Yes tonsils normal (no TP congestion) Eyes Eyelids: Yes eyelids normal Conjunctivae: conjunctivae normal Pupils: Equal, round and reactive pupils present EOM: EOMs intact bilaterally Neck Neck: Yes no lymphadenopathy and Yes supple Thyroid: Thyroid normal Resp Auscultation: clear to auscultation bilaterally, no rales and no wheezes Cardio Rate: regular rate Rhythm: regular rhythm Heart sounds: no murmurs GI Palpation (GI): Soft to palpation, nontender and No hepatosplenomegaly present Auscultation: normal bowel sounds General: Yes no CVA tenderness Back/Spine/Pelvis Back: no CVA tenderness Thoracic/Lumbar Spine: thoracic and lumbar spine normal to inspection Skin Lesions: no lesions Rashes: no rashes Neuro General: patient oriented x3, moves all extremities, no focal motor deficits and CN's II-XI intact bilaterally Cranial nerves: Yes Equal, round and reactive pupils present Cognition (Neuro): normal cognition Gait exam (Neuro): Normal gait present Extrem General: Yes no clubbing, cyanosis or edema Immunizations pneumoc 20-odilia conj-dip cr(PF) 0.5 mL IM syringe Performing Provider: Mukesh Bell MD Performing Location: [facility] [place] Administered by: JARETH Friedman on 08/15/24 17:57 Dose Route Admin Location Dispensed Lot Number Expiration Date [facility] Miscellaneous Machine Operator 0.5 mL IM Left Deltoid 0.5 mL [id number] 10/04/25 Testin/Payfone VIS Given Date VIS Provided VIS Publication Date 08/15/24 Single Vaccine 21 Eligibility Eligibility Date Funding Source Not [facility] Eligible 08/15/24 Private Results Reviewed Results Reviewed: Laboratory Tests 08/05/24 08/05/24 07:54 07:58 WBC 6.5 Hgb 13.4 Hct 40.1 Plt Count 280 Sodium 142 Potassium 4.0 Creatinine 0.74 Estimated GFR > 60 Fasting Glucose 88 Calcium 9.9 D AST 35 H ALT 43 H Triglycerides 130 Cholesterol 206 H LDL Cholesterol, Calc 127 H HDL Cholesterol 53 25-OH Vitamin D Total 39.8 TSH 2.26 Ur Specific [place] 1.020 Urine Protein Negative Urine Glucose (UA) Negative Urine Blood Trace H Urine Nitrite Negative Ur Leukocyte Esterase Negative Coding Level of Care Code Est Pt Prev Care 40-64y(96655) Diagnoses Annual physical exam Z00.00 Mixed hyperlipidemia E78.2 Elevated LFTs R79.89 Vitamin D deficiency E55.9 Elevated blood pressure reading without diagnosis of hypertension R03.0 Bilateral hip pain M25.551; M25.552 History of Graves' disease Z86.39 Anxiety F41.9 Overweight (BMI 25.0-29.9) E66.3 Additional Codes PHQ-9 - 60998 - PHQ-9 Billing: Yes ([id number]) Assessment & Plan Assessment & Plan (1) Annual physical exam: Code(s): Z00.00 - Encounter for general adult medical examination without abnormal findings Category: Medical Plan: Results of her labs done a couple of weeks ago reviewed and discussed with patient - she is advised that her LFTs and her cholesterol levels, especially her LDL cholesterol and serum triglycerides, have increased slightly from previous She is up-to-date with her cancer screenings - her mammogram is scheduled for next month (September 2024) Her next colonoscopy is due in 2032 and she will be calling up her nitroglycerin neutralizer in [place] to schedule her next appointment this year (2) Mixed hyperlipidemia: Code(s): E78.2 - Mixed hyperlipidemia Category: Medical Plan: Patient is advised that her cholesterol levels have increased slightly from previous, especially her serum triglyceride and LDL cholesterol levels Reinforced low-cholesterol diet Will recheck her fasting lipids and labs in 1 year for follow-up (3) Elevated LFTs: Code(s): R79.89 - Other specified abnormal findings of blood chemistry Category: Medical Plan: She is also advised that her LFTs have increased and are slightly elevated on her recent labs, likely due to hepatosteatosis in relation to the mild increase in her cholesterol levels and in her weight Discussed with patient that this should resolve with weight loss and with improvement in her diet Will continue to monitor her LFTs regularly (4) Vitamin D deficiency: Code(s): E55.9 - Vitamin D deficiency, unspecified Category: Medical Plan: Continue Vitamin D3 2000 units QD (5) Elevated blood pressure reading without diagnosis of hypertension: Code(s): R03.0 - Elevated blood-pressure reading, without diagnosis of hypertension Category: Medical Plan: This was likely in relation to her anxiety as her blood pressure has been normal over the past couple of years We will continue to monitor her blood pressure regularly (6) Bilateral hip pain: Code(s): M25.551 - Pain in right hip; M25.552 - Pain in left hip Category: Medical Plan: Will send patient for x-rays of both hips for further evaluation (7) History of Graves' disease: Comment: Dx in 2017; S/P treatment with Methimazole by Dr. Sabino Altamirano Code(s): Z86.39 - Personal history of other endocrine, nutritional and metabolic disease Category: Medical Plan: Her TFTs were normal on her recent labs Will continue to monitor her TFTs regularly (8) Anxiety: Code(s): F41.9 - Anxiety disorder, unspecified Category: Medical Plan: Continue Lorazepam 0.5 mg QD PRN - Rx refilled (9) Overweight (BMI 25.0-29.9): Code(s): E66.3 - Overweight Category: Medical Plan: Reinforced diet/exercise as tolerated/lose weight Plan Per request, Prevnar-20 pneumonia vaccine given today To return in 1 year for her next annual physical examination Orders: Orders Complete Blood Count Auto Diff 1 Year D64.9 - Anemia, unspecified, Z00.00 - Encounter for general adult medical examination without abnormal findings Vitamin D 25-OH Total 1 Year E55.9 - Vitamin D deficiency, unspecified, Z00.00 - Encounter for general adult medical examination without abnormal findings Pneumococcal 20 Immunization 08/15/24 Z23 - Encounter for immunization Thyroid Stimulating Hormone 1 Year Z00.00 - Encounter for general adult medical examination without abnormal findings, Z86.39 - Personal history of other endocrine, nutritional and metabolic disease Free T4 (Free Thyroxine) 1 Year Z00.00 - Encounter for general adult medical examination without abnormal findings, Z86.39 - Personal history of other endocrine, nutritional and metabolic disease XR hip DANIKA min 3V 08/15/24 M25.551 - Pain in right hip, M25.552 - Pain in left hip Comprehensive [place]. Panel Fast 1 Year E78.00 - Pure hypercholesterolemia, unspecified, Z00.00 - Encounter for general adult medical examination without abnormal findings Lipid Panel 1 Year E78.00 - Pure hypercholesterolemia, unspecified, Z00.00 - Encounter for general adult medical examination without abnormal findings UA CC w/rflx Micro + Cult 1 Year R30.0 - Dysuria, Z00.00 - Encounter for general adult medical examination without abnormal findings Medications: Refilled lorazepam 0.5 mg PO DAILY 30 days PRN 30 tabs 0RF anxiety
== END 2024-08-15 17:56 | disposition home or self-care (01) ==
PROVIDERS: PCP Internal Medicine; Visit Provider Internal Medicine
DX: Z00.00 Encounter for general adult medical examination without abnormal findings (principal); E78.2 Mixed hyperlipidemia; R79.89 Other specified abnormal findings of blood chemistry; E55.9 Vitamin D deficiency, unspecified; R03.0 Elevated blood-pressure reading, without diagnosis of hypertension; M25.551 Pain in right hip; M25.552 Pain in left hip; Z86.39 Personal history of other endocrine, nutritional and metabolic disease; F41.9 Anxiety disorder, unspecified; E66.3 Overweight

== ENCOUNTER → 2024-08-15 17:18 | Outpatient (BNVA) | payer BC, SELFPAY | PROVIDERS: PCP Internal Medicine; Visit Provider Internal Medicine | DX: Z00.00 Encounter for general adult medical examination without abnormal findings (principal); Z23 Encounter for immunization; E78.2 Mixed hyperlipidemia; R79.89 Other specified abnormal findings of blood chemistry; E55.9 Vitamin D deficiency, unspecified; R03.0 Elevated blood-pressure reading, without diagnosis of hypertension; M25.551 Pain in right hip; M25.552 Pain in left hip; F41.9 Anxiety disorder, unspecified; E66.3 Overweight; Z68.27 Body mass index [BMI] 27.0-27.9, adult; Z79.899 Other long term (current) drug therapy; Z86.39 Personal history of other endocrine, nutritional and metabolic disease | CPT/HCPCS: 90471; 90677; 96127 ==

== ENCOUNTER 2024-08-19 09:42 | Outpatient (REF) | payer BC, SELFPAY ==
--- NOTE | ~2024-08-19 | XR_ITS ---
CLINICAL HISTORY: M25.551 - Pain in right hip 2 view bilateral hips Comparison: None Findings: The bones are intact. No significant arthritic change. The soft tissues are unremarkable. IMPRESSION: No acute findings. This document has been electronically signed by: Fernando Stauffer MD on 08/20/2024 06:07:58
== END 2024-08-19 09:43 | disposition home or self-care (01) ==
LOC: HO.XRAY 09:42
PROVIDERS: PCP Internal Medicine; Visit Provider Internal Medicine
DX: M25.551 Pain in right hip (principal); M25.552 Pain in left hip
CPT/HCPCS: 73522

== ENCOUNTER → 2024-08-19 09:46 | Outpatient (BNV) | payer BC, SELFPAY | PROVIDERS: PCP Internal Medicine; Visit Provider Specialist | DX: M25.551 Pain in right hip (principal) | CPT/HCPCS: 73522 ==